=== PATIENT | male | born 1970 | race Caucasian/White ===

== ENCOUNTER 2022-01-24 09:15 | Outpatient (REF) | payer OTHER, SELFPAY ==
[2022-01-24 11:11] LABS: MANUAL DIFF FLAG NO
[2022-01-24 11:22] LABS: Basophils Absolute Auto 0.1 X10*3/uL (0.0-0.2); Eosinophils Percent Auto 0.3 % (0-4); Hematocrit 43.1 % (42.0-52.0); Hemoglobin 14.7 g/dl (14.0-18.0); Imm Gran Abs Auto 0.04 X10*3/uL (0.00-0.03); Imm Gran Pct Auto 0.4 % (0.0-0.4); Lymphocytes Percent Auto 22.7 % (20-40); Mean Corpuscular HGB Conc 34.1 g/dl (31.0-36.0); Mean Corpuscular Hemoglobin 30.3 pg (27.0-33.0); Mean Corpuscular Volume 88.9 fL (80.0-98.0); Mean Platelet Volume 8.5 fL (9.4-12.4); Monocytes Absolute Auto 0.6 X10*3/uL (0.1-1.2); Monocytes Percent Auto 6.6 % (2-11); Neutrophils Absolute Auto 6.2 x10*3/uL (2.0-8.3); Platelet Count 518 X10*3/uL (160-400); Red Blood Count 4.85 X10*6/uL (4.60-5.80); Red Cell Distribution Width 13.2 % (11.0-16.0)
[2022-01-24 12:01] LABS: PSA,Total (Free>4and<10) 0.27 ng/mL (0.00-4.00); Vitamin D 25-OH Total 19.2 ng/mL (>30)
[2022-01-24 12:04] LABS: Alanine Aminotransferase 13 U/L (0-40); Albumin Level 4.8 g/dL (3.5-5.0); Alkaline Phosphatase 131 U/L (39-117); Anion Gap 11 (12-20); Aspartate Amino Transferase 13 U/L (5-37); Bilirubin Total 0.4 mg/dL (0.0-1.0); Blood Urea Nitrogen 5 mg/dL (9-16); Calcium 9.7 mg/dL (8.4-10.2); Carbon Dioxide 29 mmol/L (22-29); Chloride 92 mmol/L (96-108); Cholesterol 168 mg/dL; Estimated Glomerular Filt Rate > 60; Glucose Fasting 98 mg/dL (60-99); HDL Cholesterol 42 mg/dL; LDL Cholesterol Calculated 103 mg/dl; Potassium 4.8 mmol/L (3.3-5.1); Sodium 127 mmol/L (135-145); Total Protein 7.6 g/dL (6.5-8.0); Triglycerides 115 mg/dL
[2022-01-24 12:10] LABS: Folate 16.4 ng/mL (> or = 4.0); Vitamin B12 252 pg/mL (200-900)
== END 2022-01-24 09:16 | disposition home or self-care (01) ==
LOC: HO.HMGCLDS 09:15
PROVIDERS: PCP Internal Medicine; Visit Provider Internal Medicine
DX: Z00.00 Encounter for general adult medical examination without abnormal findings (principal); Z12.5 Encounter for screening for malignant neoplasm of prostate; F10.21 Alcohol dependence, in remission
CPT/HCPCS: 36415; 80053; 80061; 82306; 82607; 82746; 84153; 85025

== ENCOUNTER 2022-03-01 09:41 | Outpatient (REF) | payer OTHER, SELFPAY ==
--- NOTE | 2022-03-01 12:04 | PFT_ITS ---
INDICATION: Tobacco dependence and dyspnea. SPIROMETRY: FEV1 to FVC of 71% with an FEV1 of 2.34 L, which is 60% predicted and an FVC of 3.28 L, which is 66% predicted. No significant response to bronchodilators noted. To note, the HAJ58-68 decreased to 37% predicted. Maximum voluntary ventilation 60% predicted. LUNG VOLUMES: Total lung capacity 72% predicted. DIFFUSION CAPACITY: DLCO 64% predicted. COMPARISONS: None. INTERPRETATION: There appears to be the suggestion of an obstructive physiology consistent with mild to moderate COPD. No significant response to bronchodilators noted. There is also a moderate decrease in maximum voluntary ventilation secondary to deconditioning. In addition to that, the patient does have a restrictive ventilatory defect consistent mild restrictive lung disease suggesting the possibility of underlying parenchymal disease as well. The patient also has a mild to moderate diffusion impairment secondary to likely emphysema and other parenchymal lung condition should be consider, especially need to consider combined pulmonary fibrosis and emphysema, all of related to smoking. Clinical correlation warranted. Diffusion impairment. MD QUENTIN Whittaker/MODL / [id number]
== END 2022-03-01 09:42 | disposition home or self-care (01) ==
LOC: HO.RESP 09:41
PROVIDERS: PCP Internal Medicine; Visit Provider Internal Medicine
DX: F17.210 Nicotine dependence, cigarettes, uncomplicated (principal)
CPT/HCPCS: 94060; 94727; 94729

== ENCOUNTER 2022-11-09 08:16 | Outpatient (REF) | payer OTHER, SELFPAY ==
[2022-11-09 12:46] LABS: Alanine Aminotransferase 20 U/L (0-40); Anion Gap 12 (12-20); Aspartate Amino Transferase 15 U/L (5-37); Blood Urea Nitrogen 7 mg/dL (9-16); Calcium 9.7 mg/dL (8.4-10.2); Carbon Dioxide 29 mmol/L (22-29); Chloride 97 mmol/L (96-108); Cholesterol 198 mg/dL; Estimated Glomerular Filt Rate > 60; Glucose Fasting 100 mg/dL (60-99); HDL Cholesterol 51 mg/dL; LDL Cholesterol Calculated 127 mg/dl; Potassium 4.7 mmol/L (3.3-5.1); Sodium 133 mmol/L (135-145); Triglycerides 103 mg/dL
[2022-11-09 13:18] LABS: Folate 14.7 ng/mL (> or = 4.0); Vitamin B12 380 pg/mL (200-900); Vitamin D 25-OH Total 22.8 ng/mL (>30)
== END 2022-11-09 08:17 | disposition home or self-care (01) ==
LOC: HO.HMGCLDS 08:16
PROVIDERS: PCP Internal Medicine; Visit Provider Internal Medicine
DX: E55.9 Vitamin D deficiency, unspecified (principal); E87.1 Hypo-osmolality and hyponatremia; F10.21 Alcohol dependence, in remission; F17.210 Nicotine dependence, cigarettes, uncomplicated; I10 Essential (primary) hypertension
CPT/HCPCS: 36415; 80048; 80061; 82306; 82607; 82746; 83735; 84450; 84460

== ENCOUNTER 2023-04-23 12:24 | Outpatient (AMB) | payer OTHER, SELFPAY ==
[2023-04-23 12:43] VITALS: BP 150/86; PULSE 96; O2SAT 96; BMI 22.0
--- NOTE | 2023-04-23 12:43 | MHC.PC.OV ---
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: No Allergies bees Allergy (Intermediate, Uncoded 04/23/23 13:13) face swelling throat closes Medication List - Last Reconciled 04/23/23 by Ele Hudson MD lisinopril 20 mg PO DAILY Symbicort 160-4.5 mcg/actuation (budesonide-formoterol) 2 puffs inhalation Q12H NS Ventolin HFA 90 mcg/actuation (albuterol sulfate) 2 puffs inhalation Q8H PRN NS Tobacco use date assessed: 01/28/23 Dental Screening Dental Screen Date: 04/23/23 Did you have a dental visit in the last 12 months?: Yes Did you have a dental problem in the last 6 months where you did not have access to dental care?: No Was dental information given to patient?: Patient has dentist HPI 3 month follow up HPI Details 52-year-old male with hypertension, COPD, currently smoke cigarettes with no desire to quit at present time, here today for a follow-up. Blood pressure still remains elevated despite taking lisinopril . Has been feeling well otherwise, with no complaints of any chest pain, no headache or lightheadedness, no shortness of breath, no cough reported. FORMERLY [facility], 1928–1983 Medical History Eczema of both upper extremities COPD (chronic obstructive pulmonary disease) with emphysema Smoker unmotivated to quit Nail dermatophytosis Essential hypertension Mandibular fracture, closed History of alcoholism Surgical History No pertinent past surgical history Family History Father Hypertension Diabetes Bladder cancer Alcoholism Mother Cirrhosis of liver Substance use disorder Alcoholism Social History Housing: Apartment Housing Other:: Rehab house Patient Tobacco Use Status: Current someday Tobacco user Tobacco use type: Cigarette Cigarettes Per Day: 15 Years Smoked: 35 years e-Cigarette/Vaping Use: Never Used Current occupational status: unemployed Cognitive needs: No Hearing needs: No Vision needs: Yes Questionnaire PHQ-9 Over the last 2 weeks, how often have you been bothered by any of the following problems? Depression Screening Interpretation: Negative Source: Developed by Drs. Rigoberto Jimenez, Jose Hess and colleagues, with an educational ariel from [employer]. Thrive Questionnaire Date Thrive assessed: 01/28/23 JIM-7 AMB Questionnaire JIM-7 Date JIM - 7 assessed: 01/28/23 Source: Developed by Drs. Rigoberto Jimenez, Angeline Carolina, Jose Angel and colleagues, with an educational ariel from [employer]. Review of Systems Const Denies body aches, Denies fever(s), Denies headache(s) and Denies weakness Eyes Denies eye discharge and Reports requires corrective lenses ENT Denies dizziness, Denies headache(s), Denies nasal congestion, Denies nasal discharge and Denies sore throat Card Denies chest pain, Denies lightheadedness, Denies dyspnea and Denies dyspnea on exertion Resp Denies chest congestion, Denies excessive phlegm production, Denies dyspnea, Denies dyspnea on exertion and Denies wheezing GI Denies abdominal pain, Denies change in bowel habits and Denies heartburn Denies hematuria, Denies difficulty urinating, Denies dysuria, Denies urinary frequency and Denies urinary urgency Musc Reports no additional complaints Neuro Denies dizziness, Denies headache(s) and Denies weakness Psych Reports no additional complaints Endo Reports no additional complaints Davonte/Lymph Denies easy bruising Aller/Immun Denies wheezing Physical exam (Primary Care) Vital Signs: Last Vital Signs Pulse 96 04/23/23 12:43 BP 150/86 H 04/23/23 12:43 Pulse Ox 96 04/23/23 12:43 Oxygen Delivery Method Room Air 04/23/23 12:43 BMI result Body Mass Index 22.0 Tobacco/Smoking Status: Tobacco use Status Tobacco use date assessed 01/28/23 04/23/23 12:43 Patient Tobacco Use Status Current someday Tobacco 04/23/23 12:43 Tobacco use type Cigarette 04/23/23 12:43 e-Cigarette/Vaping Use Never Used 04/23/23 12:43 Are you ready to quit: No Tobacco cessation counseling provided: Yes Depression Screening Interpretation: Negative Thrive Assessment: Date of Thrive Assessment Date Thrive assessed 01/28/23 04/23/23 12:43 Const General: comfortable, no acute distress and alert Orientation/consciousness: patient oriented x3 HENMT Ears: external ears normal General nose exam: Normal external nose present and No nasal discharge present Mouth: Normal oral and palatal mucosa present, oropharynx normal and moist mucous membranes Neck Neck: Yes full ROM, Yes no lymphadenopathy and Yes supple Resp Effort & Inspection: normal respiratory effort and able to speak in complete sentences Auscultation: clear to auscultation bilaterally Cardio Rate: regular rate Rhythm: regular rhythm Heart sounds: S1 normal heart sound present and S2 normal heart sound present GI Palpation (GI): Soft to palpation, nontender and no masses Auscultation: normal bowel sounds Male General Exam: Yes normal external exam Back/Spine/Pelvis Back: No back tenderness Neuro General: patient oriented x3, gait normal, tone normal, moves all extremities, Normal light touch and pain sensation and no focal motor deficits Cranial nerves: Yes CN's II-XII intact bilaterally Cognition (Neuro): normal cognition Extrem General: Yes full ROM, Yes no joint enlargement, Yes no clubbing, cyanosis or edema and Yes no calf tenderness Results Reviewed Results Reviewed: Name: Rigoberto Ayon Age/Sex: 52/M : 1970 Unit#: [id number] Attend Dr: Ele Hudson MD Re11/09/22 Status: DEP [facility] Disch: SPEC : [id number] [place]: 11/09/22 STATUS: COMP REQ : [id number] RECD: 11/09/[address]: Ele Hudson MD COMP: 11/09/22 ENTERED: 11/09/[address]: ORDERED: Met Prof Fast, MG, AST, ALT, Lipid Panel, B12FOL, Vitamin D 25-OH Test Result Flag Reference Site Sodium 133 L 135-145 mmol/L Potassium 4.7 3.3-5.1 mmol/L CL 97 96-108 mmol/L CO2 29 22-29 mmol/L Gap 12 12-20 BUN 7 L 9-16 mg/dL Creat 0.75 0.5-1.4 mg/dL EGFR > 60 NOTE: For -[place] individuals, multiply the result by 1.210. Chronic Kidney Disease: Estimated GFR < 60 mL/min/1.73m2 Severe Kidney Disease: Estimated GFR < 15 mL/min/1.73m2 FBS 100 H 60-99 mg/dL A fasting glucose from 100-125 mg/dl is considered impaired (pre-diabetes). CA 9.7 8.4-10.2 mg/dL Magnesium 2.0 1.6-2.6 mg/dL AST (GOT) 15 5-37 U/L ALT (GPT) 20 0-40 U/L Triglyceride 103 mg/dL Desirable Triglyceride: less than 150 mg/dL Borderline High Triglyceride 150-199 mg/dL High Triglyceride: 200-499 mg/dL Very High Triglyceride: greater than or equal to 5OO mg/dL Chol 198 mg/dL Desirable Cholesterol: less than 200 mg/dL Borderline High Cholesterol: 200-239 mg/dL High Cholesterol: greater than 239 mg/dL LDL Calculated 127 mg/dl Desirable LDL: less than 100 mg/dL Near Optimal/Above Optimal LDL: 110-129 mg/dL Borderline High LDL: 130-159 mg/dL High LDL: 160-189 mg/dL Very High LDL: greater than or equal to 190 mg/dL HDL 51 mg/dL Desirable HDL: greater than 40 mg/dL Note: This HDL assay may give artificially low results in patients with liver disease. Vitamin B12 380 200-900 pg/mL NORMAL 200-900 PG/ML INDETERMINATE 160-199 PG/ML DEFICIENT < 160 PG/ML Folate 14.7 > or = 4.0 ng/mL Reference Values: > or = 4.0 ng/mL < 4.0 ng/mL suggests folate deficiency Methotrexate, aminopterin and folinic acid (leucovorin) are chemotherapeutic agents whose molecular structures are similar to folate; therefore, the [employer] folate assay cannot be used for patients using these drugs. Vit D 25-OH Tot 22.8 >30 ng/mL Health Based Reference Values* < 20 ng/mL Deficient 20-30 ng/mL Insufficient > 30 ng/mL Sufficient Assessment and Plan Assessment & Plan (1) Essential hypertension: Code(s): I10 - Essential (primary) hypertension Plan: Blood pressure not at goal of less than 130/80. Continue with lisinopril at the same dose, added amlodipine 5 mg per tablet to take 1 tablet at night, prescription also given for blood pressure monitor kit, to use at home to check blood pressure. Schedule appointment with nurse navigator in a week to check blood pressure after starting new medication (2) Vitamin D deficiency: Code(s): E55.9 - Vitamin D deficiency, unspecified Medications: New cholecalciferol (vitamin D3) 50 mcg PO DAILY 90 caps 1RF blood pressure test kit-medium As directed 1 ea 0RF I10 - Essential (primary) hypertension amlodipine take with supper 5 mg PO DAILY 30 tabs 2RF Coding Level of Care Code Est Pt Level 3 (51212) Diagnoses Essential hypertension I10 Vitamin D deficiency E55.9
== END 2023-04-23 14:15 | disposition home or self-care (01) ==
PROVIDERS: PCP Internal Medicine; Visit Provider Internal Medicine
DX: I10 Essential (primary) hypertension (principal); E55.9 Vitamin D deficiency, unspecified
CPT/HCPCS: 99213

== ENCOUNTER 2023-07-14 11:41 | Outpatient (AMB) | payer OTHER, SELFPAY ==
--- NOTE | 2023-07-14 11:57 | MHC.PC.OV ---
Vital Signs 07/14/23 11:58 Height 5 ft 10 in Weight 155 lb BMI 22.2 BP 135/85 Blood Pressure Location Lt brachial Position Sitting Pulse 98 Pulse Source Pulse Oximeter Pulse Oximetry (%) 97 Oxygen Delivery Method Room Air Intake Visit Reasons: DTA forms Intake Note: Pt is here to get DTA paper work filled out Allergies bees Allergy (Intermediate, Uncoded 07/14/23 12:19) face swelling throat closes Medication List - Last Reconciled 07/14/23 by Ele Hudson MD amlodipine 5 mg PO DAILY blood pressure test kit-medium As directed cholecalciferol (vitamin D3) 50 mcg PO DAILY lisinopril 20 mg PO DAILY Symbicort 160-4.5 mcg/actuation (budesonide-formoterol) 2 puffs inhalation Q12H NS Ventolin HFA 90 mcg/actuation (albuterol sulfate) 2 puffs inhalation Q8H PRN NS Tobacco use date assessed: 07/14/23 Dental Screening Dental Screen Date: 07/14/23 Did you have a dental visit in the last 12 months?: No Did you have a dental problem in the last 6 months where you did not have access to dental care?: No Was dental information given to patient?: Patient has dentist HPI DTA forms HPI Details 53-year-old male with hypertension, COPD, continues to smoke cigarettes with no desire to quit at present time, has history of vitamin-D deficiency, here today to request assistance in completing an EAEDC (emergency aid to the elderly, disabled in children) application . Has no complaints at present time [facility] Medical History Eczema of both upper extremities COPD (chronic obstructive pulmonary disease) with emphysema Smoker unmotivated to quit Nail dermatophytosis Essential hypertension Mandibular fracture, closed History of alcoholism Surgical History No pertinent past surgical history Family History Father Hypertension Diabetes Bladder cancer Alcoholism Mother Cirrhosis of liver Substance use disorder Alcoholism Social History Housing: Apartment Housing Other:: Rehab house Patient Tobacco Use Status: Current someday Tobacco user Tobacco use type: Cigarette Cigarettes Per Day: 15 Years Smoked: 35 years e-Cigarette/Vaping Use: Never Used Current occupational status: unemployed Cognitive needs: No Hearing needs: No Vision needs: Yes Questionnaire Thrive Questionnaire Date Thrive assessed: 01/28/23 AUDIT C Alcohol Use Questionnaire (AUDIT-C) 1. How often do you have a drink containing alcohol?: Never (sober for the last 2 years , attends AA 3xa week) Total Score: 0 JIM-7 AMB Questionnaire JIM-7 Date JIM - 7 assessed: 01/28/23 Source: Developed by Drs. Rigoberto Jimenez, Angeline Carolina, Jose Angel and colleagues, with an educational ariel from [employer]). Review of Systems Const Denies body aches, Denies fever(s), Denies headache(s) and Denies weakness Eyes Reports requires corrective lenses ENT Denies dizziness, Denies headache(s), Denies nasal congestion, Denies nasal discharge and Denies sore throat Card Denies chest pain, Denies lightheadedness, Denies dyspnea and Denies dyspnea on exertion Resp Denies chest congestion, Denies excessive phlegm production, Denies dyspnea, Denies dyspnea on exertion and Denies wheezing GI Denies abdominal pain, Denies change in bowel habits and Denies heartburn Denies hematuria, Denies difficulty urinating, Denies dysuria, Denies urinary frequency and Denies urinary urgency Musc Reports no additional complaints Neuro Denies dizziness, Denies headache(s) and Denies weakness Psych Reports no additional complaints Endo Reports no additional complaints Davonte/Lymph Denies easy bruising Aller/Immun Denies wheezing Physical exam (Primary Care) Vital Signs: Last Vital Signs Pulse 98 07/14/23 11:58 BP 135/85 07/14/23 11:58 Pulse Ox 97 07/14/23 11:58 Oxygen Delivery Method Room Air 07/14/23 11:58 BMI result Body Mass Index 22.2 Tobacco/Smoking Status: Tobacco use Status Tobacco use date assessed 07/14/23 07/14/23 12:04 Patient Tobacco Use Status Current someday Tobacco 07/14/23 11:58 Tobacco use type Cigarette 07/14/23 11:58 e-Cigarette/Vaping Use Never Used 07/14/23 11:58 Are you ready to quit: No Tobacco cessation counseling provided: Yes Thrive Assessment: Date of Thrive Assessment Date Thrive assessed 01/28/23 07/14/23 11:58 Const General: comfortable, no acute distress and alert Orientation/consciousness: patient oriented x3 HENMT Ears: external ears normal General nose exam: Normal external nose present and No nasal discharge present Mouth: Normal oral and palatal mucosa present, oropharynx normal and moist mucous membranes Neck Neck: Yes full ROM, Yes no lymphadenopathy and Yes supple Resp Effort & Inspection: normal respiratory effort and able to speak in complete sentences Auscultation: clear to auscultation bilaterally Cardio Rate: regular rate Rhythm: regular rhythm Heart sounds: S1 normal heart sound present and S2 normal heart sound present GI Palpation (GI): Soft to palpation, nontender and no masses Auscultation: normal bowel sounds Male General Exam: Yes normal external exam Back/Spine/Pelvis Back: No back tenderness Neuro General: patient oriented x3, gait normal, tone normal, moves all extremities, Normal light touch and pain sensation and no focal motor deficits Cranial nerves: Yes CN's II-XII intact bilaterally Cognition (Neuro): normal cognition Extrem General: Yes full ROM, Yes no joint enlargement, Yes no clubbing, cyanosis or edema and Yes no calf tenderness Assessment and Plan Assessment & Plan (1) Essential hypertension: Code(s): I10 - Essential (primary) hypertension Plan: Blood pressure goal is less than 130/80. Continue with amlodipine 5 mg daily and lisinopril 20 mg daily. Reinforced importance of following a low sodium diet, getting regular exercise, smoking cessation, and lowering stress levels. Basic metabolic panel ordered (2) Smoker unmotivated to quit: Code(s): F17.200 - Nicotine dependence, unspecified, uncomplicated Plan: Patient strongly advised to stop smoking, as smoking damages blood vessels, degenerative of joints and spine, damage to lungs and heart., predisposes to developing certain cancers like lung, breast, bladder, colon. Recommended to try decreasing cigarette use by 1-2 cigarettes a day. Advised to monitor what triggers are for smoking so that this can be discussed on the next office visit. We can discuss different options to quit smoking when ready. (3) Vitamin D deficiency: Code(s): E55.9 - Vitamin D deficiency, unspecified Plan: Check vitamin-D level Plan EGD see form completed and given back to patient Orders: Orders Hemoglobin A1c 07/14/23 F17.200 - Nicotine dependence, unspecified, uncomplicated, I10 - Essential (primary) hypertension, E55.9 - Vitamin D deficiency, unspecified Basic Metabolic Panel Fasting 07/14/23 F17.200 - Nicotine dependence, unspecified, uncomplicated, I10 - Essential (primary) hypertension, E55.9 - Vitamin D deficiency, unspecified Vitamin D 25-OH Total 07/14/23 F17.200 - Nicotine dependence, unspecified, uncomplicated, I10 - Essential (primary) hypertension, E55.9 - Vitamin D deficiency, unspecified Coding Level of Care Code Est Pt Level 4 (40948) Diagnoses Essential hypertension I10 Smoker unmotivated to quit F17.200 Vitamin D deficiency E55.9
[2023-07-14 11:58] VITALS: BP 135/85; PULSE 98; O2SAT 97; BMI 22.2
== END 2023-07-14 13:19 | disposition home or self-care (01) ==
PROVIDERS: PCP Internal Medicine; Visit Provider Internal Medicine
DX: I10 Essential (primary) hypertension (principal); F17.210 Nicotine dependence, cigarettes, uncomplicated; E55.9 Vitamin D deficiency, unspecified
CPT/HCPCS: 99214

== ENCOUNTER 2024-02-05 09:21 | Outpatient (AMB) | payer OTHER, SELFPAY ==
[2024-02-05 09:28] VITALS: BP 158/86; PULSE 105; O2SAT 97; BMI 21.8
--- NOTE | 2024-02-05 09:28 | MHC.PC.OV ---
Vital Signs 02/05/24 09:28 02/05/24 10:26 Height 5 ft 10 in Weight 152 lb BMI 21.8 BP 158/86 H 140/80 H Blood Pressure Location Lt brachial Rt brachial Position Sitting Sitting Pulse 105 H 98 Pulse Source Pulse Oximeter Pulse Oximetry (%) 97 Oxygen Delivery Method Room Air Intake Visit Reasons: Annual PE Intake Note: Pt is here today for her PE Allergies bees Allergy (Intermediate, Uncoded 02/05/24 09:46) face swelling throat closes Medication List - Last Reconciled 02/05/24 by Ele Hudson MD amlodipine 5 mg PO DAILY blood pressure test kit-medium As directed cholecalciferol (vitamin D3) 50 mcg PO DAILY lisinopril 20 mg PO DAILY Symbicort 160-4.5 mcg/actuation (budesonide-formoterol) 2 puffs inhalation Q12H NS Ventolin HFA 90 mcg/actuation (albuterol sulfate) 2 puffs inhalation Q8H PRN NS Tobacco use date assessed: 02/05/24 Dental Screening Dental Screen Date: 02/05/24 Did you have a dental visit in the last 12 months?: Yes Did you have a dental problem in the last 6 months where you did not have access to dental care?: Yes Was dental information given to patient?: Patient has dentist HPI Annual PE HPI Details 53-year-old male with hypertension, COPD, continues to smoke cigarettes with no desire to quit at present time, has history of vitamin-D deficiency, here today for a physical exam . He has history of alcoholism, sober now for the last 32 months, attends AA meetings regularly has a sponsor has tried quitting smoking in the past using nicotine patches which has not helped and does not want to use Chantix, states that he has heard horror stories from people who took numb in the past. He has been using his inhalers Symbicort and rinsing his mouth after use but has been using his Ventolin inhaler every 6 hours though he has not having any episodes of wheezing or bronchospasm. Blood pressure elevated today, patient however states that he walked here from his house for 45 minutes and has just use his Ventolin inhaler and just taken his blood pressure medicines. Patient states at home he took his blood pressure prior to leaving and it was 130/80. [facility] Medical History (Updated 02/05/24 @ 09:52 by Ele Hudson MD) Family history of prostate cancer in father Colon cancer screening Eczema of both upper extremities COPD (chronic obstructive pulmonary disease) with emphysema Smoker unmotivated to quit Nail dermatophytosis Essential hypertension Mandibular fracture, closed History of alcoholism Surgical History No pertinent past surgical history Family History Father Hypertension Diabetes Bladder cancer Alcoholism Mother Cirrhosis of liver Substance use disorder Alcoholism Social History Housing: Apartment Housing Other:: Rehab house Patient Tobacco Use Status: Current someday Tobacco user Tobacco use type: Cigarette Cigarettes Per Day: 15 Years Smoked: 35 years e-Cigarette/Vaping Use: Never Used Current occupational status: unemployed Cognitive needs: No Hearing needs: No Vision needs: Yes Questionnaire PHQ-9 Over the last 2 weeks, how often have you been bothered by any of the following problems? 1. Little interest or pleasure in doing things: several days 2. Feeling down, depressed, or hopeless: not at all 3. Trouble falling or staying asleep, or sleeping too much: several days 4. Feeling tired or having little energy: several days 5. Poor appetite or overeating: not at all 6. Feeling bad about yourself - or that you are a failure or have let yourself or your family down: not at all 7. Trouble concentrating on things, such as reading the newspaper or watching television: not at all 8. Moving or speaking so slowly that other people could have noticed. Or the opposite - being so fidgety or restless that you have been moving around a lot more than usual: not at all 9. Thoughts that you would be better off or of hurting yourself in some way: not at all Total score: 3 Depression Screening Interpretation: Negative Depression Screening Done: Yes 10236 - PHQ-9 Billing: Yes Source: Developed by Drs. Rigoberto Jimenez, Angeline Carolina, Jose Angel and colleagues, with an educational ariel from [employer]. Thrive Questionnaire Date Thrive assessed: 02/05/24 I am a: Patient What is your living situation today?: I have a steady place to live Within the past 12 months, did the food you bought not last and you didn't have the money to get more?: Never true Within the past 12 months, did you worry whether your food would run out before you got money to buy more?: Never true Do you have trouble paying for medicines?: Yes Do you have trouble getting transportation to medical appointments?: Yes Do you have trouble paying your heating and electricity bill?: No Do you have trouble taking care of your child, family member or friend?: No Do you have trouble with day-to-day activities such as bathing, preparing meals, shopping, managing finances, etc.?: No Are you currently unemployed and looking for a job?: No Are you interested in more education?: No THRIVE Score: 1 AUDIT C Alcohol Use Questionnaire (AUDIT-C) 1. How often do you have a drink containing alcohol?: Never (Former alcoholic , sober for the last 32 months, attends AA meetings regular) Total Score: 0 JIM-7 AMB Questionnaire JIM-7 Date JIM - 7 assessed: 02/05/24 Feeling nervous, anxious, or on edge: 1 = Several days Not being able to stop or control worryin = Not at all Worrying too much about different things: 1 = Several days Trouble relaxin = Not at all Being so restless that it is hard to sit still: 0 = Not at all Becoming easily annoyed or irritable: 1 = Several days Feeling afraid as if something awful might happen: 1 = Several days Total JIM-7 score (0-4 normal; 5-9 mild; 10-14 moderate; 15-21 severe): 4 Source: Developed by Drs. Rigoberto Jimenez, Angelien Carolina, Jose Angel and colleagues, with an educational ariel from [employer]. JIM-7 Assessment Billing JIM-7 Assessment Tool: JIM-7 Assessment 63296 Review of Systems Const Denies body aches, Denies fever(s), Denies headache(s) and Denies weakness Eyes Details: Wears cheaters Reports requires corrective lenses ENT Details: Recently had partial dentures placed, lower, goes to [facility] Denies dizziness, Denies headache(s), Denies nasal congestion, Denies nasal discharge and Denies sore throat Card Denies chest pain, Denies lightheadedness, Denies dyspnea and Denies dyspnea on exertion Resp Denies chest congestion, Denies excessive phlegm production, Denies dyspnea, Denies dyspnea on exertion and Denies wheezing GI Denies abdominal pain, Denies change in bowel habits and Denies heartburn Reports as per HPI, Denies hematuria, Denies difficulty urinating, Denies dysuria, Denies urinary frequency and Denies urinary urgency Musc Reports no additional complaints Skin/Breast Details: Previously seen by Dr. Barboza Denies breast pain, Denies lesions and Denies rash Neuro Denies dizziness, Denies headache(s) and Denies weakness Psych Reports no additional complaints Endo Reports no additional complaints Davonte/Lymph Denies easy bruising Aller/Immun Denies wheezing Physical exam (Primary Care) Vital Signs: Last Vital Signs Pulse 105 H 02/05/24 09:28 BP 158/86 H 02/05/24 09:28 Pulse Ox 97 02/05/24 09:28 Oxygen Delivery Method Room Air 02/05/24 09:28 BMI result Body Mass Index 21.8 Tobacco/Smoking Status: Tobacco use Status Tobacco use date assessed 02/05/24 02/05/24 09:32 Patient Tobacco Use Status Current someday Tobacco 02/05/24 09:32 Tobacco use type Cigarette 02/05/24 09:32 e-Cigarette/Vaping Use Never Used 02/05/24 09:32 Are you ready to quit: No Tobacco cessation counseling provided: Yes Depression Screening Interpretation: Negative Thrive Assessment: Date of Thrive Assessment Date Thrive assessed 01/28/23 02/05/24 09:32 Advance Care Planning discussion: Completed/Scanned Date of discussion: 02/05/24 Who was present: patient Forms completed: Health Care Proxy Time spent: 16-45 minutes Actual minutes spent: 16 Const General: comfortable, no acute distress and alert Orientation/consciousness: patient oriented x3 HENMT Head: Yes normocephalic Ears: external ears normal and other (Partially impacted cerumen in left ear canal) General nose exam: Normal external nose present and No nasal discharge present Face and sinus: Yes face symmetric Mouth: Normal oral and palatal mucosa present, oropharynx normal and moist mucous membranes Eyes General: appearance normal, both eyes and all related structures Neck Neck: Yes full ROM, Yes no lymphadenopathy and Yes supple Chest Chest palpation & inspection: normal inspection of the chest Resp Effort & Inspection: normal respiratory effort and able to speak in complete sentences Auscultation: clear to auscultation bilaterally Cardio Rate: regular rate Rhythm: regular rhythm Heart sounds: S1 normal heart sound present and S2 normal heart sound present GI Palpation (GI): Soft to palpation, nontender and no masses Auscultation: normal bowel sounds Male General Exam: Yes normal external exam Back/Spine/Pelvis Back: No back tenderness Skin General skin exam: no rashes or lesions noted Nails: yellow and thickened (In both feet, sees Podiatry) Neuro General: patient oriented x3, gait normal, tone normal, moves all extremities, Normal light touch and pain sensation and no focal motor deficits Cranial nerves: Yes CN's II-XII intact bilaterally Cognition (Neuro): normal cognition Extrem General: Yes full ROM, Yes no joint enlargement, Yes no clubbing, cyanosis or edema and Yes no calf tenderness Psych Appearance: grossly normal and well kempt Mental Status: mental status grossly normal Speech and movement: Normal speech and movement present Affect: normal affect Attitude: cooperative Thought process: Normal thought process present Thought content: Normal thought content present Assessment and Plan Assessment & Plan (1) Annual visit for general adult medical examination with abnormal findings: Code(s): Z00.01 - Encounter for general adult medical examination with abnormal findings Plan: Will check appropriate labs. Recently seen by his dentist, has full dentures and recommended to get regular eye exams, at least every 2 years. Take adequate calcium in diet and vitamin-D 3 at 2000 IU per cap once a day, in addition to weight-bearing exercises to help maintain good muscle tone and weight control. Instructed to do self-testicular exam check for any mass. Referred [place] [facility] [place] screening. Has had COVID vaccines in the past does not want to get a booster, gets yearly flu shot, up-to-date with his Tdap. Reminded to get his shingles vaccine (2) Vitamin D deficiency: Code(s): E55.9 - Vitamin D deficiency, unspecified Plan: Will check vitamin-D left (3) Essential hypertension: Code(s): I10 - Essential (primary) hypertension Plan: Blood pressure goal is less than 130/80. Continue with lisinopril 20 mg in the morning and amlodipine 5 mg at night. Reinforced importance of following a low sodium diet, getting regular exercise, smoking cessation, and lowering stress levels. (4) Smoker unmotivated to quit: Code(s): F17.200 - Nicotine dependence, unspecified, uncomplicated Plan: Patient strongly advised to stop smoking, as smoking damages blood vessels, degenerative of joints and spine, damage to lungs and heart., predisposes to developing certain cancers like lung, breast, bladder, colon. Recommended to try decreasing cigarette use by 1-2 cigarettes a day. Advised to monitor what triggers are for smoking so that this can be discussed on the next office visit. We can discuss different options to quit smoking when ready. (5) COPD (chronic obstructive pulmonary disease) with emphysema: Code(s): J43.9 - Emphysema, unspecified Plan: Continue Symbicort and use only Ventolin as needed for episodes of bronchospasm and wheezing. Stressed importance of quitting smoking, not ready to quit yet (6) Nocturia: Code(s): R35.1 - Nocturia Plan: Ordered free and total PSA (7) Family history of prostate cancer in father: Code(s): Z80.42 - Family history of malignant neoplasm of prostate Plan: Ordered total and free PSA (8) Colon cancer screening: Code(s): Z12.11 - Encounter for screening for malignant neoplasm of colon Plan: Referred [place] [facility] for his initial screening colonoscopy (9) Nail dermatophytosis: Code(s): B35.1 - Tinea unguium Plan: Currently followed by Dr. Bowie Orders: Orders Lipid Panel Today E55.9 - Vitamin D deficiency, unspecified, F17.200 - Nicotine dependence, unspecified, uncomplicated, I10 - Essential (primary) hypertension, J43.9 - Emphysema, unspecified Complete Blood Count Auto Diff Today E55.9 - Vitamin D deficiency, unspecified, F17.200 - Nicotine dependence, unspecified, uncomplicated, I10 - Essential (primary) hypertension, J43.9 - Emphysema, unspecified Comprehensive Pierre. Panel Fast Today E55.9 - Vitamin D deficiency, unspecified, F17.200 - Nicotine dependence, unspecified, uncomplicated, I10 - Essential (primary) hypertension, J43.9 - Emphysema, unspecified Hemoglobin A1c Today E55.9 - Vitamin D deficiency, unspecified, F17.200 - Nicotine dependence, unspecified, uncomplicated, I10 - Essential (primary) hypertension, J43.9 - Emphysema, unspecified Vitamin D 25-OH Total Today E55.9 - Vitamin D deficiency, unspecified, F17.200 - Nicotine dependence, unspecified, uncomplicated, I10 - Essential (primary) hypertension, J43.9 - Emphysema, unspecified Vitamin B12 and Folate Today E55.9 - Vitamin D deficiency, unspecified, F17.200 - Nicotine dependence, unspecified, uncomplicated, I10 - Essential (primary) hypertension, J43.9 - Emphysema, unspecified PSA,Total (Free>4and<10) Today R35.1 - Nocturia, Z80.42 - Family history of malignant neoplasm of prostate Referrals Gastroenterology Referral Z12.11 - Encounter for screening for malignant neoplasm of colon Coding Level of Care Code Est Pt Prev Care 40-64y(22119) Diagnoses Annual visit for general adult medical examination with abnormal findings Z00.01 Vitamin D deficiency E55.9 Essential hypertension I10 Smoker unmotivated to quit F17.200 COPD (chronic obstructive pulmonary disease) with emphysema J43.9 Nocturia R35.1 Family history of prostate cancer in father Z80.42 Colon cancer screening Z12.11 Nail dermatophytosis B35.1 Additional Codes Vital Signs *Quality* - Advance Care Planning discussion: Completed/Scanned ([id number]) Vital Signs *Quality* - Time spent: 16-45 minutes ([id number]) JIM-7 Assessment Billing - JIM-7 Assessment Tool: JIM-7 Assessment 23578 ([id number])
[2024-02-05 10:26] VITALS: BP 140/80; PULSE 98
== END 2024-02-05 10:06 | disposition home or self-care (01) ==
LOC: HO.HMGC 09:21
PROVIDERS: PCP Internal Medicine; Visit Provider Internal Medicine
DX: Z00.00 Encounter for general adult medical examination without abnormal findings (principal); J43.9 Emphysema, unspecified; F10.21 Alcohol dependence, in remission; E55.9 Vitamin D deficiency, unspecified; I10 Essential (primary) hypertension; F17.200 Nicotine dependence, unspecified, uncomplicated; R35.1 Nocturia; Z80.42 Family history of malignant neoplasm of prostate; Z12.11 Encounter for screening for malignant neoplasm of colon; B35.1 Tinea unguium
CPT/HCPCS: 1123F; 99396; 99497

== ENCOUNTER 2024-02-05 10:13 | Outpatient (REF) | payer OTHER, SELFPAY ==
[2024-02-05 14:03] LABS: MANUAL DIFF FLAG NO
[2024-02-05 14:15] LABS: Basophils Absolute Auto 0.1 X10*3/uL (0.0-0.2); Basophils Percent Auto 1.2 % (0-2); Eosinophils Absolute Auto 0.1 X10*3/uL (0.0-0.4); Eosinophils Percent Auto 1.1 % (0-4); Hematocrit 42.2 % (42.0-52.0); Hemoglobin 14.6 g/dl (14.0-18.0); Imm Gran Abs Auto 0.04 X10*3/uL (0.00-0.03); Imm Gran Pct Auto 0.4 % (0.0-0.4); Lymphocytes Absolute Auto 2.8 X10*3/uL (1.2-4.9); Lymphocytes Percent Auto 30.1 % (20-40); Mean Corpuscular HGB Conc 34.6 g/dl (31.0-36.0); Mean Corpuscular Hemoglobin 31.6 pg (27.0-33.0); Mean Corpuscular Volume 91.3 fL (80.0-98.0); Mean Platelet Volume 8.7 fL (9.4-12.4); Monocytes Absolute Auto 0.6 X10*3/uL (0.1-1.2); Monocytes Percent Auto 6.5 % (2-11); Neutrophils Absolute Auto 5.7 x10*3/uL (2.0-8.3); Neutrophils Percent Auto 60.7 % (45-73); Platelet Count 488 X10*3/uL (160-400); Red Blood Count 4.62 X10*6/uL (4.60-5.80); Red Cell Distribution Width 13.2 % (11.0-16.0); White Blood Count 9.4 X10*3/uL (4.8-10.8)
[2024-02-05 14:28] LABS: Alanine Aminotransferase 16 U/L (0-40); Albumin Level 4.7 g/dL (3.5-5.0); Alkaline Phosphatase 72 U/L (39-117); Anion Gap 11 (12-20); Aspartate Amino Transferase 14 U/L (5-37); Bilirubin Total 0.3 mg/dL (0.0-1.0); Blood Urea Nitrogen 9 mg/dL (9-16); Calcium 9.5 mg/dL (8.4-10.2); Carbon Dioxide 27 mmol/L (22-29); Chloride 100 mmol/L (96-108); Cholesterol 189 mg/dL (<200); Estimated Glomerular Filt Rate > 60; Glucose Fasting 90 mg/dL (60-99); HDL Cholesterol 52 mg/dL (>40); LDL Cholesterol Calculated 109 mg/dL (<100); Potassium 3.8 mmol/L (3.3-5.1); Sodium 134 mmol/L (135-145); Total Protein 7.6 g/dL (6.5-8.0); Triglycerides 140 mg/dL (<150)
[2024-02-05 14:45] LABS: Vitamin D 25-OH Total 77.5 ng/mL (>30)
[2024-02-05 14:49] LABS: Estimated Average Glucose 111 mg/dL; Hemoglobin A1c % 5.5 % (<6.0)
[2024-02-05 15:23] LABS: Folate 9.3 ng/mL (> or = 4.0); Vitamin B12 406 pg/mL (200-900)
== END 2024-02-05 10:14 | disposition home or self-care (01) ==
LOC: HO.HMGCLDS 10:13
PROVIDERS: PCP Internal Medicine; Visit Provider Internal Medicine
DX: J43.9 Emphysema, unspecified (principal); F17.200 Nicotine dependence, unspecified, uncomplicated; I10 Essential (primary) hypertension; E55.9 Vitamin D deficiency, unspecified; R35.1 Nocturia; Z80.42 Family history of malignant neoplasm of prostate
CPT/HCPCS: 36415; 80053; 80061; 82306; 82607; 82746; 83036; 84153; 85025

== ENCOUNTER 2024-07-14 10:39 | Outpatient (AMB) | payer OTHER, SELFPAY ==
[2024-07-14 11:06] VITALS: BP 156/90; PULSE 98; O2SAT 96; BMI 23.0
--- NOTE | 2024-07-14 11:06 | A.OFFPC_ITS ---
Vital Signs 07/14/24 11:06 Height 5 ft 10 in Weight 160 lb BMI 23.0 BP 156/90 H Blood Pressure Location Lt brachial Position Sitting Pulse 98 Pulse Source Pulse Oximeter Pulse Oximetry (%) 96 Oxygen Delivery Method Room Air Intake Visit Reasons: 6M F/U Intake Note: Pt is here today for his 6mo. f/u Allergies bees Allergy (Intermediate, Uncoded 07/14/24 11:23) face swelling throat closes Medication List - Last Reconciled 07/14/24 by Ele Hudson MD amlodipine 5 mg PO DAILY blood pressure test kit-medium As directed cholecalciferol (vitamin D3) 50 mcg PO DAILY lisinopril 20 mg PO DAILY Symbicort 160-4.5 mcg/actuation (budesonide-formoterol) 2 puffs inhalation Q12H NS Ventolin HFA 90 mcg/actuation (albuterol sulfate) 2 puffs inhalation Q8H PRN NS Tobacco use date assessed: 07/14/24 Dental Screening Dental Screen Date: 07/14/24 Did you have a dental visit in the last 12 months?: Yes Did you have a dental problem in the last 6 months where you did not have access to dental care?: Yes Was dental information given to patient?: Patient has dentist HPI 6M F/U HPI Details 54 year-old male with hypertension, COPD , continues to smoke cigarettes with no desire to quit at present time, has history of vitamin-D deficiency, and dyslipidemia, here today for his follow-up . He has history of alcoholism, sober now for the last 32 months, attends AA meetings regularly has a sponsor has tried quitting smoking in the past using nicotine patches which has not helped and does not want to use Chantx. Blood pressure noted to be slightly elevated on this visit, but patient does not complain of any headache, no lightheadedness or chest pain or shortness of breath. [facility] Medical History Family history of prostate cancer in father Colon cancer screening Eczema of both upper extremities COPD (chronic obstructive pulmonary disease) with emphysema Smoker unmotivated to quit Nail dermatophytosis Essential hypertension Mandibular fracture, closed History of alcoholism Surgical History No pertinent past surgical history Family History Father Hypertension Diabetes Bladder cancer Alcoholism Mother Cirrhosis of liver Substance use disorder Alcoholism Social History Housing: Apartment Housing Other:: Rehab house Patient Tobacco Use Status: Current someday Tobacco user Tobacco use type: Cigarette Cigarettes Per Day: 15 Years Smoked: 35 years e-Cigarette/Vaping Use: Never Used Current occupational status: unemployed Cognitive needs: No Hearing needs: No Vision needs: Yes Questionnaire PHQ-9 Over the last 2 weeks, how often have you been bothered by any of the following problems? 5. Poor appetite or overeating: not at all 6. Feeling bad about yourself - or that you are a failure or have let yourself or your family down: not at all 7. Trouble concentrating on things, such as reading the newspaper or watching television: not at all 8. Moving or speaking so slowly that other people could have noticed. Or the opposite - being so fidgety or restless that you have been moving around a lot more than usual: not at all 9. Thoughts that you would be better off or of hurting yourself in some way: not at all Source: Developed by Drs. Rigoberto Jimenez, Angeline Carloina, Jose Angel and colleagues, with an educational ariel from [employer]. Thrive Questionnaire Date Thrive assessed: 07/11/24 I am a: Patient What is your living situation today?: I have a steady place to live Within the past 12 months, did the food you bought not last and you didn't have the money to get more?: Often true Within the past 12 months, did you worry whether your food would run out before you got money to buy more?: Sometimes True Do you have trouble paying for medicines?: No Do you have trouble getting transportation to medical appointments?: Yes Do you have trouble paying your heating and electricity bill?: No Do you have trouble taking care of your child, family member or friend?: I choose not to answer this question Do you have trouble with day-to-day activities such as bathing, preparing meals, shopping, managing finances, etc.?: No Are you currently unemployed and looking for a job?: I choose not to answer this question Are you interested in more education?: No Please select the resources that you would like help with: Housing/Alf, Food, Transportation and Care for elder or disabled Currently or been in a relationship where the following occur: I choose not to answer THRIVE Score: 3 AUDIT C Alcohol Use Questionnaire (AUDIT-C) 1. How often do you have a drink containing alcohol?: Never 2. How many drinks containing alcohol do you have on a typical day when you are drinking?: 1 or 2 3. How often do you have six or more drinks on one occasion?: Never Total Score: 0 JIM-7 AMB Questionnaire JIM-7 Date JIM - 7 assessed: 02/05/24 Feeling nervous, anxious, or on edge: 1 = Several days Not being able to stop or control worryin = Not at all Worrying too much about different things: 0 = Not at all Trouble relaxin = Not at all Being so restless that it is hard to sit still: 0 = Not at all Becoming easily annoyed or irritable: 0 = Not at all Feeling afraid as if something awful might happen: 0 = Not at all Total JIM-7 score (0-4 normal; 5-9 mild; 10-14 moderate; 15-21 severe): 1 Source: Developed by Drs. Rigoberto Jimenez, Angeline Carolina, Jose Angel and colleagues, with an educational ariel from [employer]. Review of Systems Const Denies body aches, Denies fever(s), Denies headache(s) and Denies weakness Eyes Details: Wears cheaters Reports requires corrective lenses ENT Details: Recently had partial dentures placed, lower, [facility] Denies dizziness, Denies headache(s), Denies nasal congestion, Denies nasal discharge and Denies sore throat Card Denies chest pain, Denies lightheadedness, Denies dyspnea and Denies dyspnea on exertion Resp Denies chest congestion, Denies excessive phlegm production, Denies dyspnea, Denies dyspnea on exertion and Denies wheezing GI Denies abdominal pain, Denies change in bowel habits and Denies heartburn Reports as per HPI, Denies hematuria, Denies difficulty urinating, Denies dysuria, Denies urinary frequency and Denies urinary urgency Musc Reports no additional complaints Skin/Breast Details: Previously seen by Dr. Barboza Denies breast pain, Denies lesions and Denies rash Neuro Denies dizziness, Denies headache(s) and Denies weakness Psych Reports no additional complaints Endo Reports no additional complaints Davonte/Lymph Denies easy bruising Aller/Immun Denies wheezing Physical exam (Primary Care) Vital Signs: Last Vital Signs Pulse 98 07/14/24 11:06 BP 156/90 H 07/14/24 11:06 Pulse Ox 96 07/14/24 11:06 Oxygen Delivery Method Room Air 07/14/24 11:06 BMI result Body Mass Index 23.0 Tobacco/Smoking Status: Tobacco use Status Tobacco use date assessed 07/14/24 07/14/24 11:08 Patient Tobacco Use Status Current someday Tobacco 07/14/24 11:08 Tobacco use type Cigarette 07/14/24 11:08 e-Cigarette/Vaping Use Never Used 07/14/24 11:08 Thrive Assessment: Date of Thrive Assessment Date Thrive assessed 07/11/24 07/14/24 11:08 Currently or been in a relationship where the following occur: I choose not to answer Const General: comfortable, no acute distress and alert Orientation/consciousness: patient oriented x3 HENMT Head: Yes normocephalic Ears: external ears normal and other (Partially impacted cerumen in left ear canal) General nose exam: Normal external nose present and No nasal discharge present Face and sinus: Yes face symmetric Mouth: Normal oral and palatal mucosa present, oropharynx normal and moist muc ous membranes Eyes General: appearance normal, both eyes and all related structures Neck Neck: Yes full ROM, Yes no lymphadenopathy and Yes supple Chest Chest palpation & inspection: normal inspection of the chest Resp Effort & Inspection: normal respiratory effort and able to speak in complete sentences Auscultation: clear to auscultation bilaterally Cardio Rate: regular rate Rhythm: regular rhythm Heart sounds: S1 normal heart sound present and S2 normal heart sound present GI Palpation (GI): Soft to palpation, nontender and no masses Auscultation: normal bowel sounds Male General Exam: Yes normal external exam Back/Spine/Pelvis Back: No back tenderness Skin General skin exam: no rashes or lesions noted Nails: yellow and thickened (In both feet, sees Podiatry) Neuro General: patient oriented x3, gait normal, tone normal, moves all extremities, Normal light touch and pain sensation and no focal motor deficits Cranial nerves: Yes CN's II-XII intact bilaterally Cognition (Neuro): normal cognition Extrem General: Yes full ROM, Yes no joint enlargement, Yes no clubbing, cyanosis or edema and Yes no calf tenderness Psych Appearance: grossly normal and well kempt Mental Status: mental status grossly normal Speech and movement: Normal speech and movement present Affect: normal affect Attitude: cooperative Thought process: Normal thought process present Thought content: Normal thought content present Office Procedures Flu Questionnaire Does the patient have a severe egg allergy?: No Does the patient have severe life threatening allergies?: No Does the patient have a fever or illness today?: No Has the patient ever had Guillain-Capitola Syndrome?: No Has the patient ever had any past reaction to a flu shot?: No Immunizations Fluarix Triv [id number] (PF) 45 mcg (15 mcg x 3)/0.5 mL IM syringe Performing Provider: Ele Hudson MD Performing Location: [facility] Administered by: Nacho Sheffield CMA on 07/14/24 11:37 Dose Route Admin Location Dispensed Lot Number Expiration Date ND Prefitter Doors 0.5 mL IM Left Deltoid 0.5 mL [id number] 02/07/25 [id number] [employer] VIS Given Date VIS Provided VIS Publication Date 07/14/24 Single Vaccine 21 Eligibility Eligibility Date Funding Source Not [facility] Eligible 07/14/24 Private Coding Level of Care Code Est Pt Level 4 (97864) Complex EM visit Add On G2211 Diagnoses Essential hypertension I10 Vitamin D deficiency E55.9 Smoker unmotivated to quit F17.200 COPD (chronic obstructive pulmonary disease) with emphysema J43.9 Assessment & Plan Assessment & Plan (1) Essential hypertension: Code(s): I10 - Essential (primary) hypertension Category: Medical Plan: Blood pressure elevated, discontinued lisinopril and switched to lisinopril-HCTZ 20-12.5 mg to take 1 tablet once a day in a.m., continue amlodipine 5 mg once a day at night. Regular monitoring blood pressure advised, keep a log of the readings. Reinforced importance of quitting smoking and adhering to a low-salt diet and getting regular exercise. Schedule an appointment to see nurse navigator in 2 weeks to check blood pressure and see me back in 2 months for follow-up (2) Vitamin D deficiency: Code(s): E55.9 - Vitamin D deficiency, unspecified Category: Medical Plan: Vitamin-D level ordered (3) Smoker unmotivated to quit: Code(s): F17.200 - Nicotine dependence, unspecified, uncomplicated Category: Social Hx Plan: Patient strongly advised to stop smoking, as smoking damages blood vessels, degenerative of joints and spine, damage to lungs and heart., predisposes to developing certain cancers like lung, breast, bladder, colon. Recommended to try decreasing cigarette use by 1-2 cigarettes a day. Advised to monitor what triggers are for smoking so that this can be discussed on the next office visit. We can discuss different options to quit smoking when ready. (4) COPD (chronic obstructive pulmonary disease) with emphysema: Code(s): J43.9 - Emphysema, unspecified Category: Medical Plan: Strongly advised to quit smoking, ready to quit at present time. Continue with Symbicort 160-4.5 mcg per actuation 2 puffs every 12 hours, rinse mouth after use, has bending inhaler to use as needed for episodes of bronchospasm and wheezing. Vaccine given today Orders: Orders Basic Metabolic Panel Fasting 1 Week E55.9 - Vitamin D deficiency, unspecified, F17.200 - Nicotine dependence, unspecified, uncomplicated, I10 - Essential (primary) hypertension, J43.9 - Emphysema, unspecified Aspartate Amino Transferase 1 Week E55.9 - Vitamin D deficiency, unspecified, F17.200 - Nicotine dependence, unspecified, uncomplicated, I10 - Essential (primary) hypertension, J43.9 - Emphysema, unspecified Alanine Aminotransferase 1 Week E55.9 - Vitamin D deficiency, unspecified, F17.200 - Nicotine dependence, unspecified, uncomplicated, I10 - Essential (primary) hypertension, J43.9 - Emphysema, unspecified Lipid Panel 1 Week E55.9 - Vitamin D deficiency, unspecified, F17.200 - Nicotine dependence, unspecified, uncomplicated, I10 - Essential (primary) hypertension, J43.9 - Emphysema, unspecified Vitamin D 25-OH Total 1 Week E55.9 - Vitamin D deficiency, unspecified, F17.200 - Nicotine dependence, unspecified, uncomplicated, I10 - Essential (primary) hypertension, J43.9 - Emphysema, unspecified Influenza [id number] Immunization 07/14/24 Z23 - Encounter for immunization Medications: New lisinopril-hydrochlorothiazide 20-12.5 mg 1 tab PO DAILY 90 tabs 1RF Refilled amlodipine take with supper 5 mg PO DAILY 90 tabs 1RF Discontinued lisinopril Discontinued Reason: Doctor's Order 20 mg PO DAILY 90 tabs 1RF I10 - Essential (primary) hypertension
== END 2024-07-14 14:46 | disposition home or self-care (01) ==
PROVIDERS: PCP Internal Medicine; Visit Provider Internal Medicine
DX: I10 Essential (primary) hypertension (principal); E55.9 Vitamin D deficiency, unspecified; F17.200 Nicotine dependence, unspecified, uncomplicated; J43.9 Emphysema, unspecified

== ENCOUNTER → 2024-07-14 10:39 | Outpatient (BNVA) | payer OTHER, SELFPAY | PROVIDERS: PCP Internal Medicine; Visit Provider Internal Medicine | DX: I10 Essential (primary) hypertension (principal); E55.9 Vitamin D deficiency, unspecified; J43.9 Emphysema, unspecified; F17.200 Nicotine dependence, unspecified, uncomplicated; Z71.6 Tobacco abuse counseling | CPT/HCPCS: 90471; 90656; 99212 ==

== ENCOUNTER → 2024-07-29 09:44 | Outpatient (BNVA) | payer OTHER, SELFPAY | PROVIDERS: PCP Internal Medicine ==

== ENCOUNTER 2024-09-24 14:18 | Outpatient (AMB) | payer OTHER, SELFPAY ==
--- OUTSIDE RECORDS SUMMARY | 2024-09-24 14:20 | XMS_ITS | Clinical Summary ---
Author Organization [facility] Address [address] [place] [address] Care Team Providers Care Electronic Game Developer Name Role Phone Unavailable Primary Care Provider Unavailabl e Social History Tobacco Use Types Packs/Day Years Used Date Smoking Tobacco: Never Assessed Sex and Gender Information Value Date Recorded Sex Assigned at Not on file Legal Sex Male 10:58 AM EST Gender Identity Not on file Sexual Orientation Not on file Plan of Treatment Not on file
[2024-09-24 14:24] VITALS: BP 122/62; PULSE 113; O2SAT 96; BMI 23.7
--- NOTE | 2024-09-24 14:24 | MHC.OFFVIS ---
Vital Signs 09/24/24 14:24 Height 5 ft 10 in Weight 165 lb BMI 23.7 BP 122/62 Blood Pressure Location Lt brachial Position Sitting Pulse 113 H Pulse Source Doppler Pulse Oximetry (%) 96 Oxygen Delivery Method Room Air Intake Visit Reasons: Emphysema Allergies bees Allergy (Intermediate, Uncoded 07/14/24 11:23) face swelling throat closes HPI HPI Emphysema: Details: 54-year-old gentleman active 30+ pack-year smoker with underlying at least moderate COPD referred for pulmonary evaluation. Patient has been using Symbicort and albuterol MDI with suboptimal control of his symptoms. He denies having recent pulmonary function testing. He denies an acute exacerbation. Patient does have family history of lung cancer in his maternal aunts. He denies other family history of lung disease. [facility] Medical History Family history of prostate cancer in father Colon cancer screening Eczema of both upper extremities COPD (chronic obstructive pulmonary disease) with emphysema Smoker unmotivated to quit Nail dermatophytosis Essential hypertension Mandibular fracture, closed History of alcoholism Surgical History No pertinent past surgical history Family History Father Hypertension Diabetes Bladder cancer Alcoholism Mother Cirrhosis of liver Substance use disorder Alcoholism Social History (Updated 09/24/24 @ 14:36 by Annette Lyons [facility]) Housing: Apartment Housing Other:: Rehab house Patient Tobacco Use Status: Current everyday Tobacco user Tobacco use type: Cigarette Cigarettes Per Day: 10 Years Smoked: started age 16, 2PPD e-Cigarette/Vaping Use: Never Used Current occupational status: unemployed Cognitive needs: No Hearing needs: No Vision needs: Yes Review of Systems Const Denies daytime sleepiness, Denies excessive sweating, Denies fatigue, Denies fever(s), Denies lethargy, Denies malaise, Denies night sweats, Denies snoring and Denies weight loss Eyes Denies blurry vision and Denies itchy eyes ENT Denies nasal congestion, Denies post nasal drip, Denies sinus pain, Denies sinus pressure and Denies other ( Thrush) Card Denies chest pain, Denies pedal edema, Denies dyspnea, Denies orthopnea and Denies paroxysmal nocturnal dyspnea Resp Denies cough, Denies hemoptysis, Denies excessive phlegm production, Denies dyspnea, Denies snoring and Denies wheezing GI Denies abdominal pain and Denies heartburn Musc Denies myalgias, Denies arthralgias and Denies joint swelling Skin/Breast Denies rash Neuro Denies memory loss and Denies seizure-like activity Psych Denies abnormal sleep pattern, Denies anxiety and Denies memory loss Endo Denies excessive sweating, Denies fatigue and Denies heat intolerance Davonte/Lymph Denies easy bruising Aller/Immun Denies itchy eyes, Denies seasonal rhinorrhea and Denies wheezing Physical Exam Vital Signs: Last Vital Signs Pulse 113 H 09/24/24 14:24 BP 122/62 09/24/24 14:24 Pulse Ox 96 09/24/24 14:24 Oxygen Delivery Method Room Air 09/24/24 14:24 BMI result Body Mass Index 23.7 Const General: no acute distress and alert Nutritional Appearance: not obese Orientation/consciousness: Other orientation findings ( oriented) HEENT Head: Yes atraumatic Eyes General: appearance normal, both eyes and all related structures Sclerae: sclerae normal EOM: EOMs intact bilaterally Neck Neck: Yes supple Lymphatic: no lymphadenopathy noted Resp Effort & Inspection: normal respiratory effort and no use of accessory muscles Auscultation: clear to auscultation bilaterally Cardio Rate: regular rate Rhythm: regular rhythm Heart sounds: no gallops, no murmurs and no rubs Skin General skin exam: other ( warm) Extrem General: No clubbing, No cyanosis and No edema Assessment & Plan Assessment & Plan (1) COPD (chronic obstructive pulmonary disease) with emphysema: Code(s): J43.9 - Emphysema, unspecified Category: Medical Plan: Will obtain full PFT. Will continue current regimen of Symbicort and albuterol MDI. (2) Personal history of nicotine dependence: Code(s): Z87.891 - Personal history of nicotine dependence Category: Medical Plan: Will obtain lung cancer screening CT chest. Orders: Orders PFT pulmonary function test Today J43.9 - Emphysema, unspecified CT lung screening Today Z87.891 - Personal history of nicotine dependence Coding Level of Care Code New Pt Level 4 (30081) Diagnoses COPD (chronic obstructive pulmonary disease) with emphysema J43.9 Personal history of nicotine dependence Z87.894
== END 2024-09-24 14:47 | disposition home or self-care (01) ==
PROVIDERS: PCP Internal Medicine; Visit Provider Internal Medicine Pulmonary Disease
DX: J43.9 Emphysema, unspecified (principal); Z87.891 Personal history of nicotine dependence
CPT/HCPCS: 94060; 94727; 94729; 99204

== ENCOUNTER → 2024-09-24 14:18 | Outpatient (BNVA) | payer OTHER, SELFPAY | PROVIDERS: PCP Internal Medicine; Visit Provider Internal Medicine Pulmonary Disease ==

== ENCOUNTER 2024-09-24 14:51 | Outpatient (REF) | payer OTHER, SELFPAY ==
--- OUTSIDE RECORDS SUMMARY | 2024-09-24 14:54 | XMS_ITS | Clinical Summary ---
Author Organization [facility] Address [address] [place] [address] Care Team Providers Care Textile Science Technician Name Role Phone Unavailable Primary Care Provider [...]
--- NOTE | 2024-09-24 15:00 | PFT_ITS ---
Indication: COPD Spirometry [FEV1 to FVC 68%; FEV1 2.54 L; FVC 3.74 L. No significant response to bronchodilators noted.] Lung Volumes [Total lung capacity 117% predicted; residual volume 242% predicted] Diffusion Capacity [DLCO 68% predicted] Comparisons [none] Interpretation [This is an obstructive ventilatory defect consistent with moderate COPD. No significant response to bronchodilators noted. Trend of hyperinflation due to the COPD and significant air trapping due to the COPD. The patient also has a mild diffusion impairment. Clinical correlation warranted.] MTDD
== END 2024-09-24 14:52 | disposition home or self-care (01) ==
LOC: HO.RESP 14:51
PROVIDERS: PCP Internal Medicine; Visit Provider Internal Medicine Pulmonary Disease
DX: J43.9 Emphysema, unspecified (principal)
CPT/HCPCS: 94010; 94640; 94727; 94729; 99202

== ENCOUNTER 2024-10-14 09:55 | Outpatient (AMB) | payer OTHER, SELFPAY ==
[2024-10-14 10:20] VITALS: BP 160/82; PULSE 102; O2SAT 97; BMI 23.4
--- NOTE | 2024-10-14 10:20 | MHC.OFFVIS ---
Vital Signs 10/14/24 10:20 Height 5 ft 10 in Weight 163 lb BMI 23.4 BP 160/82 H Blood Pressure Location Rt brachial Position Sitting Pulse 102 H Pulse Source Doppler Pulse Oximetry (%) 97 Oxygen Delivery Method Room Air Intake Visit Reasons: Emphysema Allergies bees Allergy (Intermediate, Uncoded 07/14/24 11:23) face swelling throat closes HPI HPI Emphysema: Details: 54-year-old gentleman active 30+ pack-year smoker followed for moderate COPD. After the last office visit patient completed his pulmonary function test. He continues to use Symbicort and albuterol MDI, though with suboptimal control of his symptoms. His lung cancer screening CT chest is pending. He denies acute exacerbations. [facility] Medical History Family history of prostate cancer in father Colon cancer screening Eczema of both upper extremities COPD (chronic obstructive pulmonary disease) with emphysema Smoker unmotivated to quit Nail dermatophytosis Essential hypertension Mandibular fracture, closed History of alcoholism Surgical History No pertinent past surgical history Family History Father Hypertension Diabetes Bladder cancer Alcoholism Mother Cirrhosis of liver Substance use disorder Alcoholism Social History Housing: Apartment Housing Other:: Rehab house Patient Tobacco Use Status: Current everyday Tobacco user Tobacco use type: Cigarette Cigarettes Per Day: 10 Years Smoked: started age 16, 2PPD e-Cigarette/Vaping Use: Never Used Current occupational status: unemployed Cognitive needs: No Hearing needs: No Vision needs: Yes Review of Systems Const Denies daytime sleepiness, Denies excessive sweating, Denies fatigue, Denies fever(s), Denies lethargy, Denies malaise, Denies night sweats, Denies snoring and Denies weight loss Eyes Denies blurry vision and Denies itchy eyes ENT Denies nasal congestion, Denies post nasal drip, Denies sinus pain, Denies sinus pressure and Denies other ( Thrush) Card Denies chest pain, Denies pedal edema, Denies dyspnea, Denies orthopnea and Denies paroxysmal nocturnal dyspnea Resp Denies cough, Denies hemoptysis, Denies excessive phlegm production, Denies dyspnea, Denies snoring and Denies wheezing GI Denies abdominal pain and Denies heartburn Musc Denies myalgias, Denies arthralgias and Denies joint swelling Skin/Breast Denies rash Neuro Denies memory loss and Denies seizure-like activity Psych Denies abnormal sleep pattern, Denies anxiety and Denies memory loss Endo Denies excessive sweating, Denies fatigue and Denies heat intolerance Davonte/Lymph Denies easy bruising Aller/Immun Denies itchy eyes, Denies seasonal rhinorrhea and Denies wheezing Physical Exam Vital Signs: Last Vital Signs Pulse 102 H 10/14/24 10:20 BP 160/82 H 10/14/24 10:20 Pulse Ox 97 10/14/24 10:20 Oxygen Delivery Method Room Air 10/14/24 10:20 BMI result Body Mass Index 23.4 Const General: no acute distress and alert Nutritional Appearance: not obese Orientation/consciousness: Other orientation findings ( oriented) HEENT Head: Yes atraumatic Eyes General: appearance normal, both eyes and all related structures Sclerae: sclerae normal EOM: EOMs intact bilaterally Neck Neck: Yes supple Lymphatic: no lymphadenopathy noted Resp Effort & Inspection: normal respiratory effort and no use of accessory muscles Auscultation: clear to auscultation bilaterally Cardio Rate: regular rate Rhythm: regular rhythm Heart sounds: no gallops, no murmurs and no rubs Skin General skin exam: other ( warm) Extrem General: No clubbing, No cyanosis and No edema Assessment & Plan Assessment & Plan (1) COPD (chronic obstructive pulmonary disease) with emphysema: Code(s): J43.9 - Emphysema, unspecified Category: Medical Plan: Suboptimal control on Symbicort and albuterol MDI. Will change Symbicort to Breztri. (2) Personal history of nicotine dependence: Code(s): Z87.891 - Personal history of nicotine dependence Category: Medical Plan: Lung cancer screening CT chest is pending for early November of 2024. Coding Level of Care Code Est Pt Level 4 (66303) Diagnoses COPD (chronic obstructive pulmonary disease) with emphysema J43.9 Personal history of nicotine dependence Z87.891
--- OUTSIDE RECORDS SUMMARY | 2024-10-14 11:33 | XMS_ITS | Clinical Summary ---
Author Organization [facility] Address [address] [place] [address] Care Team Providers Care Credit Review Manager Name Role Phone Unavailable Primary Care Provider [...]
== END 2024-10-14 10:38 | disposition home or self-care (01) ==
PROVIDERS: PCP Internal Medicine; Visit Provider Internal Medicine Pulmonary Disease
DX: J43.9 Emphysema, unspecified (principal); Z87.891 Personal history of nicotine dependence
CPT/HCPCS: 99214

== ENCOUNTER → 2024-10-14 09:55 | Outpatient (BNVA) | payer OTHER, SELFPAY | PROVIDERS: PCP Internal Medicine; Visit Provider Internal Medicine Pulmonary Disease | DX: J43.9 Emphysema, unspecified (principal); Z87.891 Personal history of nicotine dependence | CPT/HCPCS: 99212 ==

== ENCOUNTER 2024-11-18 10:04 | Outpatient (AMB) | payer OTHER, SELFPAY ==
[2024-11-18 10:12] VITALS: BP 130/82; PULSE 98; O2SAT 98; BMI 23.7
--- NOTE | 2024-11-18 10:12 | MHC.OFFVIS ---
Vital Signs 11/18/24 10:12 Height 5 ft 10 in Weight 165 lb BMI 23.7 BP 130/82 Blood Pressure Location Lt brachial Position Sitting Pulse 98 Pulse Source Doppler Pulse Oximetry (%) 98 Oxygen Delivery Method Room Air Intake Visit Reasons: Emphysema Allergies bees Allergy (Intermediate, Uncoded 07/14/24 11:23) face swelling throat closes HPI HPI Emphysema: Details: 54-year-old gentleman active 30+ pack-year smoker followed for moderate COPD. After the last office visit patient completed his pulmonary function test. He continues to use Symbicort and albuterol MDI, though with suboptimal control of his symptoms. His lung cancer screening CT chest is pending. He denies acute exacerbations. After the last office visit patient has not received his Breztri and has not completed his lung cancer screening CT chest yet. [facility] Medical History Family history of prostate cancer in father Colon cancer screening Eczema of both upper extremities COPD (chronic obstructive pulmonary disease) with emphysema Smoker unmotivated to quit Nail dermatophytosis Essential hypertension Mandibular fracture, closed History of alcoholism Surgical History No pertinent past surgical history Family History Father Hypertension Diabetes Bladder cancer Alcoholism Mother Cirrhosis of liver Substance use disorder Alcoholism Social History Housing: Apartment Housing Other:: Rehab house Patient Tobacco Use Status: Current everyday Tobacco user Tobacco use type: Cigarette Cigarettes Per Day: 10 Years Smoked: started age 16, 2PPD e-Cigarette/Vaping Use: Never Used Current occupational status: unemployed Cognitive needs: No Hearing needs: No Vision needs: Yes Review of Systems Const Denies daytime sleepiness, Denies excessive sweating, Denies fatigue, Denies fever(s), Denies lethargy, Denies malaise, Denies night sweats, Denies snoring and Denies weight loss Eyes Denies blurry vision and Denies itchy eyes ENT Denies nasal congestion, Denies post nasal drip, Denies sinus pain, Denies sinus pressure and Denies other ( Thrush) Card Denies chest pain, Denies pedal edema, Denies dyspnea, Denies orthopnea and Denies paroxysmal nocturnal dyspnea Resp Denies cough, Denies hemoptysis, Denies excessive phlegm production, Denies dyspnea, Denies snoring and Denies wheezing GI Denies abdominal pain and Denies heartburn Musc Denies myalgias, Denies arthralgias and Denies joint swelling Skin/Breast Denies rash Neuro Denies memory loss and Denies seizure-like activity Psych Denies abnormal sleep pattern, Denies anxiety and Denies memory loss Endo Denies excessive sweating, Denies fatigue and Denies heat intolerance Davonte/Lymph Denies easy bruising Aller/Immun Denies itchy eyes, Denies seasonal rhinorrhea and Denies wheezing Physical Exam Vital Signs: Last Vital Signs Pulse 98 11/18/24 10:12 BP 130/82 11/18/24 10:12 Pulse Ox 98 11/18/24 10:12 Oxygen Delivery Method Room Air 11/18/24 10:12 BMI result Body Mass Index 23.7 Const General: no acute distress and alert Nutritional Appearance: not obese Orientation/consciousness: Other orientation findings ( oriented) HEENT Head: Yes atraumatic Eyes General: appearance normal, both eyes and all related structures Sclerae: sclerae normal EOM: EOMs intact bilaterally Neck Neck: Yes supple Lymphatic: no lymphadenopathy noted Resp Effort & Inspection: normal respiratory effort and no use of accessory muscles Auscultation: clear to auscultation bilaterally Cardio Rate: regular rate Rhythm: regular rhythm Heart sounds: no gallops, no murmurs and no rubs Skin General skin exam: other ( warm) Extrem General: No clubbing, No cyanosis and No edema Assessment & Plan Assessment & Plan (1) COPD (chronic obstructive pulmonary disease) with emphysema: Code(s): J43.9 - Emphysema, unspecified Category: Medical Plan: Still with suboptimal control as patient has not received his Breztri yet and has been using his Symbicort. Patient has been encouraged to mushroom picker his Breztri from pharmacy. Continue albuterol MDI. Will reassess symptoms in 4-6 weeks. (2) Personal history of nicotine dependence: Code(s): Z87.891 - Personal history of nicotine dependence Category: Medical Plan: Patient has missed his lung cancer screening CT chest. To reschedule lung cancer screening CT chest. Coding Level of Care Code Est Pt Level 4 (21223) Diagnoses COPD (chronic obstructive pulmonary disease) with emphysema J43.9 Personal history of nicotine dependence Z87.891
--- OUTSIDE RECORDS SUMMARY | 2024-11-18 11:45 | XMS_ITS | Clinical Summary ---
Author Organization [facility] Address [address] [place] [address] Care Team Providers Care Marketing Pr Intern Name Role Phone Unavailable Primary Care Provider [...]
== END 2024-11-18 10:27 | disposition home or self-care (01) ==
LOC: HO.HPS 10:05
PROVIDERS: PCP Internal Medicine; Visit Provider Internal Medicine Pulmonary Disease
DX: J43.9 Emphysema, unspecified (principal); Z87.891 Personal history of nicotine dependence
CPT/HCPCS: 99214

== ENCOUNTER → 2024-11-18 10:04 | Outpatient (BNVA) | payer OTHER, SELFPAY | PROVIDERS: PCP Internal Medicine; Visit Provider Internal Medicine Pulmonary Disease | DX: J43.9 Emphysema, unspecified (principal); F17.210 Nicotine dependence, cigarettes, uncomplicated | CPT/HCPCS: 99212 ==

== ENCOUNTER 2024-12-10 15:29 | Outpatient (REF) | payer OTHER, SELFPAY ==
--- NOTE | ~2024-12-10 | CT_ITS ---
CLINICAL HISTORY: Z87.891 - Personal history of nicotine dependence CT lung cancer screening (LDCT) Comparison: None Technique: Axial CT images of the chest using low-dose technique. Referring provider counseled the patient on shared decision-making for LDCT screening. Additional counseling was provided on smoking cessation. Effective radiation dose total: DLP 31.2 mGycm, CTDIvol 0.9 mGy. Findings: Lung: Mild emphysema. Calcified pleural plaque of the right lower lobe. There is atelectatic change of the right lower lobe. There are calcified granulomas. Small pulmonary nodules: 2 mm subpleural nodule of the right middle lobe series 4, image 99. Coronary artery calcifications: Mild Limited upper abdomen: Unremarkable Other: None Impression: LungRADS 2 - Benign Appearance: Continue annual screening with low dose Chest CT in 12 months. ##L2# Category 1: Normal; continue annual screening Category 2: Benign appearance or behavior, continue annual screening Category 3: Probably benign, [address] recommended Category 4A: Suspicious, [address] recommended; may consider PET/CT Category 4B: Suspicious, Additional diagnostics and/or tissue sampling recommended Category 4X: Suspicious, Additional diagnostics and/or tissue sampling recommended Category 0: Recalls (incomplete screen due to Incomplete coverage, Noise, Respiratory motion, Expiration, Obscured by acute abnormality) This document has been electronically signed by: Danyell Mark MD on 12/13/2024 12:56:13
--- OUTSIDE RECORDS SUMMARY | 2024-12-10 15:31 | XMS_ITS | Clinical Summary ---
Author Organization [facility] Address [address] [place] [address] Care Team Providers Care Chief Technician Name Role Phone Unavailable Primary Care [...]
== END 2024-12-10 15:30 | disposition home or self-care (01) ==
LOC: HO.CT 15:29
PROVIDERS: PCP Internal Medicine; Visit Provider Internal Medicine Pulmonary Disease
DX: Z12.2 Encounter for screening for malignant neoplasm of respiratory organs (principal); Z87.891 Personal history of nicotine dependence
CPT/HCPCS: 71271

== ENCOUNTER → 2024-12-10 15:33 | Outpatient (BNV) | payer OTHER, SELFPAY | PROVIDERS: PCP Internal Medicine; Visit Provider Nuclear Medicine | DX: Z12.2 Encounter for screening for malignant neoplasm of respiratory organs (principal); Z87.891 Personal history of nicotine dependence | CPT/HCPCS: 71271 ==

== ENCOUNTER 2024-12-21 12:53 | Outpatient (AMB) | payer OTHER, SELFPAY ==
[2024-12-21 13:09] VITALS: BP 140/79; PULSE 99; O2SAT 96; BMI 22.7
--- NOTE | 2024-12-21 13:09 | A.OFFVIS_ITS ---
Vital Signs 12/21/24 13:09 Height 5 ft 10 in Weight 158 lb BMI 22.7 BP 140/79 H Blood Pressure Location Rt brachial Position Sitting Pulse 99 Pulse Source Doppler Pulse Oximetry (%) 96 Oxygen Delivery Method Room Air Intake Visit Reasons: Emphysema Allergies bees Allergy (Intermediate, Uncoded 07/14/24 11:23) face swelling throat closes HPI HPI Emphysema: Details: 54-year-old gentleman active 30+ pack-year smoker followed for moderate COPD. After the last office visit patient completed his pulmonary function test. He continues to use Symbicort and albuterol MDI, though with suboptimal control of his symptoms. He completed his lung cancer screening CT chest. He denies recent exacerbations. [facility] Medical History Family history of prostate cancer in father Colon cancer screening Eczema of both upper extremities COPD (chronic obstructive pulmonary disease) with emphysema Smoker unmotivated to quit Nail dermatophytosis Essential hypertension Mandibular fracture, closed History of alcoholism Surgical History No pertinent past surgical history Family History Father Hypertension Diabetes Bladder cancer Alcoholism Mother Cirrhosis of liver Substance use disorder Alcoholism Social History Housing: Apartment Housing Other:: Rehab house Patient Tobacco Use Status: Current everyday Tobacco user Tobacco use type: Cigarette Cigarettes Per Day: 10 Years Smoked: started age 16, 2PPD e-Cigarette/Vaping Use: Never Used Current occupational status: unemployed Cognitive needs: No Hearing needs: No Vision needs: Yes Review of Systems Const Denies daytime sleepiness, Denies excessive sweating, Denies fatigue, Denies fever(s), Denies lethargy, Denies malaise, Denies night sweats, Denies snoring and Denies weight loss Eyes Denies blurry vision and Denies itchy eyes ENT Denies nasal congestion, Denies post nasal drip, Denies sinus pain, Denies sinus pressure and Denies other ( Thrush) Card Denies chest pain, Denies pedal edema, Denies dyspnea, Denies orthopnea and Denies paroxysmal nocturnal dyspnea Resp Denies cough, Denies hemoptysis, Denies excessive phlegm production, Denies dyspnea, Denies snoring and Denies wheezing GI Denies abdominal pain and Denies heartburn Musc Denies myalgias, Denies arthralgias and Denies joint swelling Skin/Breast Denies rash Neuro Denies memory loss and Denies seizure-like activity Psych Denies abnormal sleep pattern, Denies anxiety and Denies memory loss Endo Denies excessive sweating, Denies fatigue and Denies heat intolerance Davonte/Lymph Denies easy bruising Aller/Immun Denies itchy eyes, Denies seasonal rhinorrhea and Denies wheezing Physical Exam Vital Signs: Last Vital Signs Pulse 99 12/21/24 13:09 BP 140/79 H 12/21/24 13:09 Pulse Ox 96 12/21/24 13:09 Oxygen Delivery Method Room Air 12/21/24 13:09 BMI result Body Mass Index 22.7 Const General: no acute distress and alert Nutritional Appearance: not obese Orientation/consciousness: Other orientation findings ( oriented) HEENT Head: Yes atraumatic Eyes General: appearance normal, both eyes and all related structures Sclerae: sclerae normal EOM: EOMs intact bilaterally Neck Neck: Yes supple Lymphatic: no lymphadenopathy noted Resp Effort & Inspection: normal respiratory effort and no use of accessory muscles Auscultation: clear to auscultation bilaterally Cardio Rate: regular rate Rhythm: regular rhythm Heart sounds: no gallops, no murmurs and no rubs Skin General skin exam: other ( warm) Extrem General: No clubbing, No cyanosis and No edema Assessment & Plan Assessment & Plan (1) COPD (chronic obstructive pulmonary disease) with emphysema: Code(s): J43.9 - Emphysema, unspecified Category: Medical Plan: Well controlled on current regimen of Symbicort and albuterol MDI. Continue current regimen. (2) Personal history of nicotine dependence: Code(s): Z87.891 - Personal history of nicotine dependence Category: Medical Plan: Results of lung cancer screening CT chest reviewed, no worrisome nodules at this time. Continue with yearly screening, next in November of 2025. Coding Level of Care Code Est Pt Level 4 (29382) Diagnoses COPD (chronic obstructive pulmonary disease) with emphysema J43.9 Personal history of nicotine dependence Z87.891
--- OUTSIDE RECORDS SUMMARY | 2024-12-21 13:57 | XMS_ITS | Clinical Summary ---
Author Organization [facility] Address [address] [place] [address] Care Team Providers Care Director Of Student Financial Services Name Role Phone Unavailable Primary Care Provider [...]
== END 2024-12-21 13:39 | disposition home or self-care (01) ==
LOC: HO.HPS 12:54
PROVIDERS: PCP Internal Medicine; Visit Provider Internal Medicine Pulmonary Disease
DX: J43.9 Emphysema, unspecified (principal); Z87.891 Personal history of nicotine dependence
CPT/HCPCS: 99214

== ENCOUNTER → 2024-12-21 12:53 | Outpatient (BNVA) | payer OTHER, SELFPAY | PROVIDERS: PCP Internal Medicine; Visit Provider Internal Medicine Pulmonary Disease | DX: J43.9 Emphysema, unspecified (principal); Z87.891 Personal history of nicotine dependence | CPT/HCPCS: 99212 ==

== ENCOUNTER 2025-03-16 10:29 | Outpatient (REF) | payer OTHER, SELFPAY ==
--- OUTSIDE RECORDS SUMMARY | 2025-03-16 11:10 | XMS_ITS | Clinical Summary ---
Author Organization [facility] Address [address] [place] [address] Care Team Providers Care Residential Team Leader Name Role Phone Unavailable Primary Care Provider [...]
[2025-03-16 14:19] LABS: Alanine Aminotransferase 20 U/L (0-40); Anion Gap 10 (12-20); Aspartate Amino Transferase 23 U/L (5-37); Blood Urea Nitrogen 8 mg/dL (9-16); Calcium 9.1 mg/dL (8.4-10.2); Carbon Dioxide 29 mmol/L (22-29); Chloride 95 mmol/L (96-108); Cholesterol 177 mg/dL (<200); Estimated Glomerular Filt Rate > 60; HDL Cholesterol 47 mg/dL (>40); Potassium 3.8 mmol/L (3.3-5.1); Sodium 130 mmol/L (135-145); Triglycerides 127 mg/dL (<150)
== END 2025-03-16 10:30 | disposition home or self-care (01) ==
LOC: HO.HMGCLDS 10:29
PROVIDERS: PCP Internal Medicine; Visit Provider Internal Medicine
DX: Z00.01 Encounter for general adult medical examination with abnormal findings (principal); I10 Essential (primary) hypertension; J43.9 Emphysema, unspecified; F17.210 Nicotine dependence, cigarettes, uncomplicated; E55.9 Vitamin D deficiency, unspecified; Z79.899 Other long term (current) drug therapy; Z13.31 Encounter for screening for depression; Z13.39 Encounter for screening examination for other mental health and behavioral disorders
CPT/HCPCS: 36415; 80048; 80061; 82306; 84450; 84460; 96127; 99396

== ENCOUNTER 2025-03-16 10:40 | Outpatient (AMB) | payer OTHER, SELFPAY ==
[2025-03-16 11:18] VITALS: BP 135/70; PULSE 98; TEMP 36.6; O2SAT 97; BMI 22.1
--- NOTE | 2025-03-16 11:18 | A.OFFPC_ITS ---
Vital Signs 03/16/25 11:18 Height 5 ft 10 in Weight 154 lb BMI 22.1 BP 135/70 Blood Pressure Location Lt brachial Position Sitting Pulse 98 Pulse Source Pulse Oximeter Temp 97.9 F Temp Source Oral Pulse Oximetry (%) 97 Oxygen Delivery Method Room Air Intake Visit Reasons: Annual PE Intake Note: Pt is here today for his PE: Pt states never had a colonscopy Allergies bees Allergy (Intermediate, Uncoded 03/16/25 11:35) face swelling throat closes Medication List - Last Reconciled 03/16/25 by Ele Hudson MD amlodipine 5 mg PO DAILY blood pressure test kit-medium As directed cholecalciferol (vitamin D3) 50 mcg PO DAILY lisinopril-hydrochlorothiazide 20-12.5 mg 1 tab PO DAILY Symbicort 160-4.5 mcg/actuation (budesonide-formoterol) 2 puffs inhalation Q12H NS Ventolin HFA 90 mcg/actuation (albuterol sulfate) 2 puffs inhalation Q8H PRN NS Tobacco use date assessed: 03/16/25 Dental Screening Dental Screen Date: 03/16/25 Did you have a dental visit in the last 12 months?: Yes Did you have a dental problem in the last 6 months where you did not have access to dental care?: No Was dental information given to patient?: Patient has dentist HPI Annual PE HPI Details - The patient is a 54-year-old male pres enting for his physical exam. - Essential Hypertension: The patient interiano s a history of high blood pressure and is currently on Lisinopril, Hydrochlorothiazide, and Amlodipine. Pressure fair ly well controlled present treatment. - Tobacco Use Disorder: The patient has a history of smoking and has been advised to cut back on smoking due to its impact on his general health. - Preventative care: The patient has not yet undergone a colonoscopy and was referred for colon cancer screening. There is no family history of colon cancer. [facility] Medical History Family history of prostate cancer in father Colon cancer screening Eczema of both upper extremities COPD (chronic obstructive pulmonary disease) with emphysema Smoker unmotivated to quit Nail dermatophytosis Essential hypertension Mandibular fracture, closed History of alcoholism Surgical History No pertinent past surgical history Family History Father Hypertension Diabetes Bladder cancer Alcoholism Mother Cirrhosis of liver Substance use disorder Alcoholism Social History Housing: Apartment Housing Other:: Rehab house Patient Tobacco Use Status: Current everyday Tobacco user Tobacco use type: Cigarette Cigarettes Per Day: 10 Years Smoked: started age 16, 2PPD e-Cigarette/Vaping Use: Never Used Current occupational status: unemployed Cognitive needs: No Hearing needs: No Vision needs: Yes Questionnaire PHQ-9 Over the last 2 weeks, how often have you been bothered by any of the following problems? 1. Little interest or pleasure in doing things: not at all 2. Feeling down, depressed, or hopeless: not at all 3. Trouble falling or staying asleep, or sleeping too much: not at all 4. Feeling tired or having little energy: not at all 5. Poor appetite or overeating: not at all 6. Feeling bad about yourself - or that you are a failure or have let yourself or your family down: not at all 7. Trouble concentrating on things, such as reading the newspaper or watching television: not at all 8. Moving or speaking so slowly that other people could have noticed. Or the opposite - being so fidgety or restless that you have been moving around a lot more than usual: not at all 9. Thoughts that you would be better off or of hurting yourself in some way: not at all Total score: 0 Depression Screening Interpretation: Negative Depression Screening Done: Yes 58855 - PHQ-9 Billing: Yes Source: Developed by Drs. Rigoberto Jimenez, Angeline Carolina, Jose Angel and colleagues, with an educational ariel from [employer]. Thrive Questionnaire Date Thrive assessed: 09/11/24 I am a: Patient What is your living situation today?: I have a steady place to live Within the past 12 months, did the food you bought not last and you didn't have the money to get more?: I choose not to answer this question Within the past 12 months, did you worry whether your food would run out before you got money to buy more?: I choose not to answer this question Do you have trouble paying for medicines?: No Do you have trouble getting transportation to medical appointments?: I choose not to answer this question Do you have trouble paying your heating and electricity bill?: I choose not to answer this question Do you have trouble taking care of your child, family member or friend?: No Do you have trouble with day-to-day activities such as bathing, preparing meals, shopping, managing finances, etc.?: No Are you currently unemployed and looking for a job?: I choose not to answer this question Are you interested in more education?: No Please select the resources that you would like help with: None Currently or been in a relationship where the following occur: I choose not to answer THRIVE Score: 0 AUDIT C Alcohol Use Questionnaire (AUDIT-C) 1. How often do you have a drink containing alcohol?: Never Total Score: 0 Score Reviewed/Action Taken: Yes JIM-7 AMB Questionnaire JIM-7 Date JIM - 7 assessed: 03/16/25 Feeling nervous, anxious, or on edge: 0 = Not at all Not being able to stop or control worryin = Not at all Worrying too much about different things: 0 = Not at all Trouble relaxin = Not at all Being so restless that it is hard to sit still: 0 = Not at all Becoming easily annoyed or irritable: 0 = Not at all Feeling afraid as if something awful might happen: 0 = Not at all Total JIM-7 score (0-4 normal; 5-9 mild; 10-14 moderate; 15-21 severe): 0 Source: Developed by Drs. Rigoberto Jimenez, Angeline Carolina, Jose Angel and colleagues, with an educational ariel from [employer]. JIM-7 Assessment Billing JIM-7 Assessment Tool: JIM-7 Assessment 33723 Review of Systems Const Denies daytime sleepiness, Denies fatigue, Denies fever(s), Denies malaise, Denies night sweats, Denies snoring and Denies weight loss Eyes Denies blurry vision ENT Details: sees [facility] [place] [facility] 6 months Denies nasal congestion and Denies post nasal drip Card Denies chest pain, Denies pedal edema and Denies dyspnea Resp Denies cough, Denies excessive phlegm production, Denies dyspnea, Denies snoring and Denies wheezing GI Denies abdominal pain, Denies melena, Denies hematochezia, Denies change in bowel habits, Denies change in stool character and Denies heartburn Reports no additional complaints Musc Denies myalgias, Denies arthralgias and Denies joint swelling Skin/Breast Denies rash Neuro Denies memory loss and Denies seizure-like activity Psych Denies abnormal sleep pattern, Denies anxiety and Denies memory loss Endo Denies fatigue and Denies heat intolerance Davonte/Lymph Denies easy bruising Aller/Immun Denies seasonal rhinorrhea and Denies wheezing Physical exam (Primary Care) Vital Signs: Last Vital Signs Temp 97.9 F 03/16/25 11:18 Pulse 98 03/16/25 11:18 BP 135/70 03/16/25 11:18 Pulse Ox 97 03/16/25 11:18 Oxygen Delivery Method Room Air 03/16/25 11:18 BMI result Body Mass Index 22.1 Tobacco/Smoking Status: Tobacco use Status Tobacco use date assessed 03/16/25 03/16/25 11:27 Patient Tobacco Use Status Current everyday Tobacco 03/16/25 11:22 Tobacco use type Cigarette 03/16/25 11:22 e-Cigarette/Vaping Use Never Used 03/16/25 11:22 PHQ-9: PHQ-9 Score PHQ-9: Total score 0 03/16/25 11:43 Depression Screening Interpretation: Negative Thrive Assessment: Date of Thrive Assessment Date Thrive assessed 09/11/24 03/16/25 11:22 Currently or been in a relationship where the following occur: I choose not to answer Const General: comfortable, no acute distress and alert Orientation/consciousness: patient oriented x3 HENMT Head: Yes normocephalic Ears: external ears normal and hearing grossly impaired General nose exam: Normal external nose present and No nasal discharge present Face and sinus: Yes face symmetric Mouth: Normal oral and palatal mucosa present, oropharynx normal and moist mucous membranes Eyes General: appearance normal, both eyes and all related structures Neck Neck: Yes full ROM, Yes no lymphadenopathy and Yes supple Chest Chest palpation & inspection: normal inspection of the chest Resp Effort & Inspection: normal respiratory effort and able to speak in complete sentences Auscultation: clear to auscultation bilaterally Cardio Rate: regular rate Rhythm: regular rhythm Heart sounds: S1 normal heart sound present and S2 normal heart sound present GI Palpation (GI): Soft to palpation, nontender and no masses Auscultation: normal bowel sounds Male General Exam: Yes normal external exam Back/Spine/Pelvis Back: No back tenderness Skin General skin exam: no rashes or lesions noted Nails: yellow and thickened (In both feet, sees Podiatry) Neuro General: patient oriented x3, gait normal, tone normal, moves all extremities, Normal light touch and pain sensation and no focal motor deficits Cranial nerves: Yes CN's II-XII intact bilaterally Cognition (Neuro): normal cognition Extrem General: Yes full ROM, Yes no joint enlargement, Yes no clubbing, cyanosis or edema and Yes no calf tenderness Psych Appearance: grossly normal and well kempt Mental Status: mental status grossly normal Speech and movement: Normal speech and movement present Affect: normal affect Coding Level of Care Code Est Pt Prev Care 40-64y(56614) Diagnoses Annual visit for general adult medical examination with abnormal findings Z00.01 Colon cancer screening Z12.11 Essential hypertension I10 COPD (chronic obstructive pulmonary disease) with emphysema J43.9 Smoker unmotivated to quit F17.200 Additional Codes JIM-7 Assessment Billing - JIM-7 Assessment Tool: JIM-7 Assessment 76877 ([id number]) PHQ-9 - 24832 - PHQ-9 Billing: Yes ([id number]) Assessment & Plan Assessment & Plan (1) Annual visit for general adult medical examination with abnormal findings: Code(s): Z00.01 - Encounter for general adult medical examination with abnormal findings (2) Colon cancer screening: Code(s): Z12.11 - Encounter for screening for malignant neoplasm of colon Category: Medical (3) Essential hypertension: Code(s): I10 - Essential (primary) hypertension Category: Medical (4) COPD (chronic obstructive pulmonary disease) with emphysema: Code(s): J43.9 - Emphysema, unspecified Category: Medical (5) Smoker unmotivated to quit: Code(s): F17.200 - Nicotine dependence, unspecified, uncomplicated Category: Social Hx Plan The patient was advised to continue with his current antihypertensive medications, including Lisinopril, Hydrochlorothiazide, and Amlodipine, to manage his essential hypertension. Fasting labs ordered today. A referral for a colonoscopy was made to screen for colon cancer, given the patient's age and lack of previous screening. The patient was informed about the preparation process and the need for a hi low truck driver post-procedure. Smoking cessation was discussed, with emphasis on the benefits of reducing smoking to improve vascular health. The patient was informed about available cessation aids, though he expressed reluctance to use them. Vaccinations were reviewed, and the patient was advised to consider the shingles vaccine, with information provided about potential side effects and the need for two doses. Patient was informed and verbally consented to the use of an ambient scribe for clinic note documentation during this visit. Orders: Referrals Gastroenterology Referral Z12.11 - Encounter for screening for malignant neoplasm of colon
== END 2025-03-16 14:18 | disposition home or self-care (01) ==
LOC: HO.HMCC 10:41
PROVIDERS: PCP Internal Medicine; Visit Provider Internal Medicine
DX: Z00.01 Encounter for general adult medical examination with abnormal findings (principal); Z12.11 Encounter for screening for malignant neoplasm of colon; I10 Essential (primary) hypertension; J43.9 Emphysema, unspecified; F17.200 Nicotine dependence, unspecified, uncomplicated

== ENCOUNTER 2025-05-05 09:51 | Outpatient (AMB) | payer OTHER, SELFPAY ==
[2025-05-05 09:59] VITALS: BP 160/80; PULSE 108; O2SAT 96; BMI 22.7
--- NOTE | 2025-05-05 09:59 | A.OFFVIS_ITS ---
Vital Signs 05/05/25 09:59 Height 5 ft 10 in Weight 158 lb BMI 22.7 BP 160/80 H Blood Pressure Location Rt brachial Position Sitting Pulse 108 H Pulse Source Pulse Oximeter Pulse Oximetry (%) 96 Oxygen Delivery Method Room Air Intake Visit Reasons: COPD Allergies bees Allergy (Intermediate, Uncoded 03/16/25 11:35) face swelling throat closes HPI HPI COPD: Details: 54-year-old gentleman active 30+ pack-year smoker followed for moderate COPD. He continues on Symbicort and albuterol MDI with good control of his underlying symptoms. He denies recent exacerbations. [facility] Medical History Family history of prostate cancer in father Colon cancer screening Eczema of both upper extremities COPD (chronic obstructive pulmonary disease) with emphysema Smoker unmotivated to quit Nail dermatophytosis Essential hypertension Mandibular fracture, closed History of alcoholism Surgical History No pertinent past surgical history Family History Father Hypertension Diabetes Bladder cancer Alcoholism Mother Cirrhosis of liver Substance use disorder Alcoholism Social History Housing: Apartment Housing Other:: Rehab house Patient Tobacco Use Status: Current everyday Tobacco user Tobacco use type: Cigarette Cigarettes Per Day: 10 Years Smoked: started age 16, 2PPD e-Cigarette/Vaping Use: Never Used Current occupational status: unemployed Cognitive needs: No Hearing needs: No Vision needs: Yes Review of Systems Const Denies daytime sleepiness, Denies excessive sweating, Denies fatigue, Denies fever(s), Denies lethargy, Denies malaise, Denies night sweats, Denies snoring and Denies weight loss Eyes Denies blurry vision and Denies itchy eyes ENT Denies nasal congestion, Denies post nasal drip, Denies sinus pain, Denies sinus pressure and Denies other ( Thrush) Card Denies chest pain, Denies pedal edema, Denies dyspnea, Denies orthopnea and Denies paroxysmal nocturnal dyspnea Resp Denies cough, Denies hemoptysis, Denies excessive phlegm production, Denies dyspnea, Denies snoring and Denies wheezing GI Denies abdominal pain and Denies heartburn Musc Denies myalgias, Denies arthralgias and Denies joint swelling Skin/Breast Denies rash Neuro Denies memory loss and Denies seizure-like activity Psych Denies abnormal sleep pattern, Denies anxiety and Denies memory loss Endo Denies excessive sweating, Denies fatigue and Denies heat intolerance [place]/Lymph Denies easy bruising Aller/Immun Denies itchy eyes, Denies seasonal rhinorrhea and Denies wheezing Physical Exam Vital Signs: Last Vital Signs Pulse 108 H 05/05/25 09:59 BP 160/80 H 05/05/25 09:59 Pulse Ox 96 05/05/25 09:59 Oxygen Delivery Method Room Air 05/05/25 09:59 BMI result Body Mass Index 22.7 Const General: no acute distress and alert Nutritional Appearance: not obese Orientation/consciousness: Other orientation findings ( oriented) HEENT Head: Yes atraumatic Eyes General: appearance normal, both eyes and all related structures Sclerae: sclerae normal EOM: EOMs intact bilaterally Neck Neck: Yes supple Lymphatic: no lymphadenopathy noted Resp Effort & Inspection: normal respiratory effort and no use of accessory muscles Auscultation: clear to auscultation bilaterally Cardio Rate: regular rate Rhythm: regular rhythm Heart sounds: no gallops, no murmurs and no rubs Skin General skin exam: other ( warm) Extrem General: No clubbing, No cyanosis and No edema Assessment & Plan Assessment & Plan (1) COPD (chronic obstructive pulmonary disease) with emphysema: Code(s): J43.9 - Emphysema, unspecified Category: Medical Plan: Well controlled on current regimen of Symbicort and albuterol MDI. Continue current regimen. (2) Personal history of nicotine dependence: Code(s): Z87.891 - Personal history of nicotine dependence Category: Medical Plan: Results of lung cancer screening CT chest reviewed, no worrisome nodules. Continue with yearly screening, next in December of 2025. Coding Level of Care Code Est Pt Level 4 (12388) Diagnoses COPD (chronic obstructive pulmonary disease) with emphysema J43.9 Personal history of nicotine dependence Z87.891
--- OUTSIDE RECORDS SUMMARY | 2025-05-05 11:49 | XMS_ITS | Clinical Summary ---
Author Organization [facility] Address [address] [place] [address] Care Team Providers Care Sprayer Machine Name Role Phone Unavailable Primary Care Provider [...]
== END 2025-05-05 10:15 | disposition home or self-care (01) ==
LOC: HO.HPS 09:52
PROVIDERS: PCP Internal Medicine; Visit Provider Internal Medicine Pulmonary Disease
DX: J43.9 Emphysema, unspecified (principal); Z87.891 Personal history of nicotine dependence
CPT/HCPCS: 99214

== ENCOUNTER → 2025-05-05 09:51 | Outpatient (BNVA) | payer OTHER, SELFPAY | PROVIDERS: PCP Internal Medicine; Visit Provider Internal Medicine Pulmonary Disease | DX: J44.9 Chronic obstructive pulmonary disease, unspecified (principal); J43.9 Emphysema, unspecified; Z87.891 Personal history of nicotine dependence | CPT/HCPCS: 99212 ==

== ENCOUNTER 2025-07-13 12:00 | Outpatient (AMB) | payer OTHER, SELFPAY ==
--- NOTE | 2025-07-13 12:27 | A.OFFVIS_ITS ---
Vital Signs 07/13/25 12:28 Height 5 ft 10 in Weight 156 lb BMI 22.4 BP 170/78 H Blood Pressure Location Lt brachial Position Sitting Pulse 99 Pulse Oximetry (%) 96 Intake Visit Reasons: [place] screening Intake Note: Patient new consult for 1st pre Colonoscopy screening Patient cc: heartburn on and off. Denies any other GI issues. 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 Accompanied by: Self / Same As Patient Allergies bees Allergy (Intermediate, Uncoded 03/16/25 11:35) face swelling throat closes Medication List - Last Reconciled 07/13/25 by Kerline Tesfaye CNP amlodipine 5 mg PO DAILY blood pressure test kit-medium As directed cholecalciferol (vitamin D3) 50 mcg PO DAILY lisinopril-hydrochlorothiazide 20-12.5 mg 1 tab PO DAILY Symbicort 160-4.5 mcg/actuation (budesonide-formoterol) 2 puffs inhalation Q12H NS Ventolin HFA 90 mcg/actuation (albuterol sulfate) 2 puffs inhalation Q8H PRN NS HPI HPI [place] screening: Details: Patient is 55-year-old male with PMH of nicotine dependence, COPD, alcohol use disorder in remission, hypertension. Referred by PCP for pre colonoscopy screening. The patient presents for initial colorectal cancer screening with no prior history of colonoscopy or fecal occult blood testing. They report regular morning bowel movements, occasionally requiring a second movement later in the day but with no current sensation of incomplete evacuation. No complaints of constipation, abdominal pain, nausea, vomiting, GI bleeding, or weight loss. Weight stable in the mid-150s lbs. Heartburn occurs a couple times per week, resolves spontaneously, and is not associated with regurgitation, dysphagia, or use of acid-suppressing meds. Heartburn may be diet-related; denies classic reflux symptoms. No other GI symptoms of concern. Notable comorbidities include hypertension and COPD, both under specialist management; patient uses albuterol inhaler daily, reports smoking half a pack daily. Patient denies: fever/chills, n/v, appetite changes, regurgitation,dysphasia, unintentional wt loss, ab pain or melena/hematochezia. Social hx: -ETOH use recovery X 4 years -denies recreational drug use -current 1/2 ppd smoker - family hx as below -denies personal hx of CA -tolerated anesthesia in the past without difficulty. [facility] Medical History (Updated 07/13/25 @ 13:28 by Kerline Tesfaye CNP) Mild heartburn Family history of prostate cancer in father Colon cancer screening Eczema of both upper extremities COPD (chronic obstructive pulmonary disease) with emphysema Smoker unmotivated to quit Nail dermatophytosis Essential hypertension Mandibular fracture, closed History of alcoholism Surgical History No pertinent past surgical history Family History (Updated 07/13/25 @ 13:13 by Kerline Tesfaye CNP) Father Hypertension Diabetes Bladder cancer Alcoholism Mother Cirrhosis of liver Substance use disorder Alcoholism Sister Crohn disease Paternal Grandmother Colon cancer Social History Housing: Apartment Housing Other:: Rehab house Patient Tobacco Use Status: Current everyday Tobacco user Tobacco use type: Cigarette Cigarettes Per Day: 10 Years Smoked: started age 16, 2PPD e-Cigarette/Vaping Use: Never Used Current occupational status: unemployed Cognitive needs: No Hearing needs: No Vision needs: Yes Review of Systems Const Reports as per HPI ENT Reports as per HPI Card Reports as per HPI Resp Reports as per HPI GI Reports as per HPI Reports as per HPI Physical Exam Vital Signs: Last Vital Signs Pulse 99 07/13/25 12:28 BP 170/78 H 07/13/25 12:28 Pulse Ox 96 07/13/25 12:28 BMI result Body Mass Index 22.4 Const General: healthy appearing, no acute distress and well developed Nutritional Appearance: average body habitus Orientation/consciousness: patient oriented x3 HEENT Head: Yes normal to inspection, Yes normocephalic and Yes atraumatic Face and sinus: Yes normal facial exam Eyes General: appearance normal, both eyes and all related structures Neck Neck: Yes normal visual inspection Resp Effort & Inspection: normal respiratory effort, able to speak in complete sentences, no tracheal deviation and symmetric chest movement Cardio Jugular venous distension: no JVD Neuro General: patient oriented x3 Gait exam (Neuro): Normal gait present Psych Appearance: grossly normal Mental Status: mental status grossly normal Speech and movement: Normal speech and movement present Affect: normal affect Attitude: cooperative Thought process: Normal thought process present Thought content: Normal thought content present Insight: Good insight present (Psych) Judgement: Good judgement present (Psych) Assessment & Plan Assessment & Plan (1) Colon cancer screening: Code(s): Z12.11 - Encounter for screening for malignant neoplasm of colon Category: Medical Plan: Age >50, no prior colonoscopy, relative with GI ca (grandmother), appropriate for average-risk screening. Additional Testing: Screening colonoscopy ordered. Medication Management: Miralax Split Prep (1 bottle Miralax in 64oz clear/acceptable color Gatorade), 4 laxative tablets provided for bowel prep. Lifestyle Recommendations: - Clear liquid diet day prior to procedure; avoid red/blue/purple foods/beverages - NPO (incl. no water) 4 hrs pre-procedure - Maintain tobacco and alcohol abstinence; smoking cessation encouraged Follow-Up: No routine GI follow-up post-procedure unless abnormal findings or endoscopist recommendation; patient will receive results and next screening interval advice by mail. (2) Mild heartburn: Code(s): R12 - Heartburn Category: Medical Plan: Intermittent heartburn, resolves spontaneously, not requiring pharmacological management, no concerning features. Additional Testing: None indicated at this time. Medication Management: No changes. Lifestyle Recommendations: Identify/avoid dietary triggers; patient notes possible soda association. Follow-Up: Symptom-based; advise return if increased frequency, severity, or development of alarm symptoms (dysphagia, weight loss, bleeding). Plan Follow-up as needed Time: I spent a total of 24 minutes on the date of encounter which includes: Preparing to see the patient (reviewed previous documentation, test results and medical history) Performing a medically appropriate exam and/or evaluation Ordering medications, tests, and procedures Documenting clinical information in the health record Orders: Referrals GI Procedure Notification Z12.11 - Encounter for screening for malignant neoplasm of colon Medications: New polyethylene glycol 3350 (Miralax) per colonoscopy prep instructions 238 grams PO ONCE 238 grams 0RF bisacodyl take four tablets once day of colonoscopy prep 20 mg (4 x 5 mg) PO ONCE 4 tabs 0RF Coding Level of Care Code New Pt New Pt Level 2 (71156) Patient Type New Diagnoses Colon cancer screening Z12.11 Mild heartburn R12
[2025-07-13 12:28] VITALS: BP 170/78; PULSE 99; O2SAT 96; BMI 22.4
--- OUTSIDE RECORDS SUMMARY | 2025-07-13 14:24 | XMS_ITS | Clinical Summary ---
Author Organization [facility] Address [address] [place] [address] Care Team Providers Care Data Sciences Director Name Role Phone Unavailable Primary Care Provider [...]
== END 2025-07-13 13:23 | disposition home or self-care (01) ==
LOC: HO.HGI 12:01
PROVIDERS: PCP Internal Medicine; Visit Provider Nurse Practitioner Family
DX: Z01.818 Encounter for other preprocedural examination (principal); Z12.11 Encounter for screening for malignant neoplasm of colon; R12 Heartburn
CPT/HCPCS: 99202

== ENCOUNTER → 2025-07-13 12:00 | Outpatient (BNVA) | payer OTHER, SELFPAY | PROVIDERS: PCP Internal Medicine; Visit Provider Nurse Practitioner Family | DX: Z12.11 Encounter for screening for malignant neoplasm of colon (principal); R12 Heartburn | CPT/HCPCS: 99202 ==